=== PATIENT | female | born 1970 | race Caucasian/White ===

== ENCOUNTER 2017-01-22 11:04 | Day surgery (SDC) | payer OTHER ==
[2017-01-20 17:34] VITALS: BMI 22.5
[~2017-01-22 11:04] MED LIST: LACTATED RINGERS 1,000 ML IV SCH; LIDOCAINE 1% 20 ML VIAL (10MG/ML) FOR IV START INTRADERMA PRN
[2017-01-22 11:45] VITALS: RESP 18; TEMP 97.4
[2017-01-22] MEDS ORDERED: fentaNYL (PF) 50 MCG/ML 2 ML AMP ONE (12:34)
[2017-01-22] MEDS ORDERED: PROPOFOL 10 MG/ML 20 ML VIAL IV ONE (12:34)
[2017-01-22] MEDS ORDERED: MIDAZOLAM 2 MG/2 ML VIAL ONE (12:34)
[2017-01-22] MEDS ORDERED: LIDOCAINE 1% INJ 10MG/ML (20 ML MDV) ONE (12:34)
--- NOTE | 2017-01-22 13:12 | P.PCN ---
Date of Procedure: 01/22/17 Procedure(s) Performed: Procedure: Esophagogastroduodenoscopy and biopsy. Preoperative diagnosis: Epigastric pain. Postoperative diagnosis: 1. No obvious hiatal hernia, esophagitis or complicated reflux disease. 2. Mild antral gastritis and minimal duodenitis. 3. Multiple biopsies obtained from the duodenum, antrum and esophagus. Preparation and sedation: Was provided by anesthesia. Brief clinical history: The patient is a 46-year-old female who is scheduled for this evaluation because of epigastric pain that she has been experiencing for the last month or so. She denies dysphagia, odynophagia or unintentional weight loss. This evaluation is to assess for esophagitis or complicated reflux disease or other pathology. Procedure: With the patient on her left lateral decubitus position and after informed consent and adequate sedation, I passed the Olympus-GIF 160 video upper endoscope through the cricopharyngeus down the esophagus. GE junction was around 40 cm from the incisors and there was no hiatal hernia. The endoscope was then passed into the stomach which was insufflated with air and inspected in detail including the retroflex view in the cardia. Finally, the endoscope was passed through the pylorus into the duodenum. Pyloric channel, duodenal bulb, post bulbar area and descending duodenum showed no ulcers or erosions. There was minimal erythema in the duodenum. Antrum showed some mottling and erythema but no ulcers or erosions. The esophagus did not show any erosions, ulcers, strictures or Phillip's esophagus. I obtained biopsies from the duodenum, antrum and esophagus then the endoscope was withdrawn. The patient tolerated the procedure well. Plan: The patient was reassured. Will await pathology results. She will follow -up in the office we will keep you updated on her progress.
[2017-01-22 13:47] VITALS: BP 99/64; PULSE 66
== END 2017-01-22 14:12 | disposition home health service (06) ==
LOC: ORWHC2ENDO 11:04
DX: K29.50 Unspecified chronic gastritis without bleeding (principal); K20.9 Esophagitis, unspecified; K29.80 Duodenitis without bleeding; F41.9 Anxiety disorder, unspecified; F32.9 Major depressive disorder, single episode, unspecified; Z88.0 Allergy status to penicillin; Z79.1 Long term (current) use of non-steroidal anti-inflammatories (NSAID); Z79.899 Other long term (current) drug therapy
CPT/HCPCS: 43239; 81025; 88305; 88342; J2250; J2001; J3010; J2704

== ENCOUNTER → 2019-04-11 | Outpatient (CLI) | payer OTHER ==
--- NOTE | 2019-04-12 04:55 | MR ---
EXAMINATION TYPE: MR cervical spine wo con DATE OF EXAM: 04/11/2019 COMPARISON: 04/10/2015 HISTORY: 48-year-old female cervicalgia TECHNIQUE: Multiplanar, multisequence images of the cervical spine were acquired. FINDINGS: No craniocervical junction abnormality, predental space widening, or prevertebral soft tissue swellin g. Preserved alignment of the cervical spine though with straightening of the normal cervical lordosis. No suspicious bone marrow replacement. Mild degenerative disc disease with variable intervertebral disc desiccation especially mid to lower cervical spine. Small posterior disc bulges are present mid to lower cervical spine. Underlying mild congenital spinal canal narrowing mid cervical spine with AP canal dimension of 1.0 c m. Mild facet arthropathy mid to lower cervical spine. At C2-C3, no canal or foraminal stenosis. At C3-C4, mild facet arthropathy without canal or foraminal stenosis. At C4-C5, mild congenital canal narrowing without significant foraminal stenosis. At C5-C6, mild posterior disc bulge with mild facet arthropathy. No neural foraminal stenosis. Accent uated mild overall spinal canal stenosis with abutment and slight flattening of the ventral cord. No discrete myelopathic cord signal change. At C6-C7, mild posterior disc bulge with mild facet arthropathy. Additional mild left-sided uncoverte bral joint arthropathy causing mild left neuroforaminal stenosis. Accentuated mild spinal canal steno sis. At C7-T1, facet arthropathy and right-sided uncovertebral joint arthropathy causing mild right neurof oraminal stenosis. No spinal canal stenosis. Normal course and signal intensity of the cervical spinal cord. IMPRESSION: 1. Underlying mild congenital spinal canal stenosis especially along the mid cervical spine. 2. Superimposed mild degenerative disc disease. Posterior disc bulges at C5-C6 and C6-C7 contribute t o mild overall spinal canal stenosis, greatest at C5-C6 where there is abutment and slight flattening of the ventral cord. 3. No high-grade canal compromise. 4. Additional scattered facet arthropathy and uncovertebral joint spurring. Changes result in mild le ft neuroforaminal stenosis at C6-C7 and mild right neuroforaminal stenosis at C7-T1.
== END | disposition home or self-care (01) ==
LOC: RADMRIMAIN 07:16
PROVIDERS: ATTEND Orthopaedic Surgery
DX: M48.02 Spinal stenosis, cervical region (principal); M50.122 Cervical disc disorder at C5-C6 level with radiculopathy; M50.10 Cervical disc disorder with radiculopathy, unspecified cervical region; M46.92 Unspecified inflammatory spondylopathy, cervical region
CPT/HCPCS: 72141

== ENCOUNTER → 2019-08-25 | Outpatient (CLI) | payer OTHER ==
--- NOTE | 2019-08-25 15:49 | US ---
EXAMINATION TYPE: US venous doppler duplex LE BI DATE OF EXAM: 08/25/2019 2:54 PM COMPARISON: NONE CLINICAL HISTORY: M79.662, R22.42, M79.661, R22.41. Bilateral leg pain, patient taking aspirin SIDE PERFORMED: Bilateral TECHNIQUE: The lower extremity deep venous system is examined utilizing real time linear array sonog miranda with graded compression, doppler sonography and color-flow sonography. VESSELS IMAGED: External Iliac Vein (EIV) Common Femoral Vein Deep Femoral Vein Greater Saphenous Vein * Femoral Vein Popliteal Vein Small Saphenous Vein * Proximal Calf Veins (* superficial vessels) Right Leg: Appears negative for DVT Left Leg: Appears negative for DVT IMPRESSION: 1. Bilateral lower extremity ultrasound negative for deep venous thrombosis
== END | disposition home or self-care (01) ==
LOC: RADUSWWP 14:12
PROVIDERS: ATTEND Internal Medicine
DX: M79.661 Pain in right lower leg (principal); R22.41 Localized swelling, mass and lump, right lower limb; M79.662 Pain in left lower leg; R22.42 Localized swelling, mass and lump, left lower limb; Z88.0 Allergy status to penicillin
CPT/HCPCS: 93970

== ENCOUNTER → 2019-11-29 | Day surgery (SDC) | payer OTHER ==
[2019-11-28 09:08] VITALS: BMI 21.1
[~2019-11-29] MED LIST changes: +DEXAMETHASONE SOD PHOSPHATE 10 MG/ML 1 ML VIAL ONE; +IOPAMIDOL M200 10 ML VIAL ONE; +IV FLUID CONTINUATION 1,000 ML IV ONE; -LIDOCAINE 1% 20 ML VIAL (10MG/ML) FOR IV START INTRADERMA PRN; +MIDAZOLAM 2 MG/2 ML VIAL ONE; +SODIUM CHLORIDE 0.9% (PF) 10 ML VIAL ONE; +fentaNYL (PF) 50 MCG/ML 2 ML AMP ONE
[2019-11-29 13:04] VITALS: RESP 16; TEMP 98.1
--- NOTE | 2019-11-29 13:28 | P.CONS ---
History of Present Illness - Reason for Consult Consult date: 11/29/19 - Chief Complaint Neck pain - History of Present Illness This is a 49-year-old lady with history of neck pain which started in April 2019 with no precipitating events. 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 The patient denies any paresthesia in the upper extremities. She feels some weakness in the right arm. Her pain is worse on the right side than the left side. She denies any bowel or bladder dysfunction. The pain occasionally wakes her up at night. There are no alleviating or exacerbating factors noticed by the patient. She had cervical MRI which showed disc bulging at the C5 6 level with mild cervical stenosis and abutment of the thecal sac. Review of Systems Constitutional: Denies chills, Denies fever Cardiovascular: Denies chest pain, Denies shortness of breath Respiratory: Denies cough Musculoskeletal: Reports as per HPI Neurological: Reports as per HPI Past Medical History Past Medical History: No Reported History Additional Past Medical History / Comment(s): LYMPHADEMA BOTH LEGS , HEADACHES , NECK PAIN , SEASONAL ALLERGIES, History of Any Multi-Drug Resistant Organisms: None Reported Past Surgical History: Appendectomy, Orthopedic Surgery, Tonsillectomy Additional Past Surgical History / Comment(s): paula.carpal tunnel, RIGHT KNEE ARTHROSCOPIC Past Anesthesia/Blood Transfusion Reactions: Motion Sickness, Postoperative Nausea & Vomiting (PONV) Smoking Status: Never smoker - Past Family History Mother Family Medical History: Cancer Additional Family Medical History / Comment(s): colon & Breast CA Sister(s) Family Medical History: Cancer Additional Family Medical History / Comment(s): Osteosarcoma Medications and Allergies Home Medications Medication Instructions Recorded Confirmed Type Ibuprofen [Motrin] 600 - 800 mg PO Q6HR PRN 12/19/15 11/28/19 History Vilazodone HCl [Viibryd] 40 mg PO DAILY 12/19/15 11/28/19 History Calcium Carbonate/Vitamin D3 1 each PO DAILY 11/28/19 11/28/19 History [Calcium 500-Vit D3 200 Tablet] Furosemide [Lasix] 20 mg PO DAILY 11/28/19 11/28/19 History Montelukast [Singulair] 10 mg PO DAILY 11/28/19 11/28/19 History Multivitamin [Multivitamins Adult 1 each PO DAILY 11/28/19 11/28/19 History Gummies] Omeprazole 20 mg PO DAILY 11/28/19 11/28/19 History Allergies Allergy/AdvReac Type Severity Reaction Status Date / Time Penicillins Allergy Anaphylaxis Verified 11/29/19 13:08 Physical Exam Vitals: Vital Signs Temp Pulse Resp BP Pulse Ox 11/29/19 13:03 98.1 F 88 16 146/90 100 Intake and Output 11/28/19 11/29/19 11/29/19 22:59 06:59 14:59 Other: Weight 61.1 kg - Constitutional General appearance: average body habitus - EENT Eyes: PERRLA - Respiratory Respiratory: bilateral: CTA - Cardiovascular Rhythm: regular - Neurologic Neuro exam of the upper extremities showed normal and symmetrical muscle strength bilaterally and symmetrically. Postoperative tenderness in the cervical paravertebral musculature and the trapezius muscles bilaterally. Normal range of motion of the cervical spine Neurologic: CNII-XII intact - Psychiatric Psychiatric: A&O x's 3, appropriate affect, intact judgment & insight Assessment and Plan Plan: This is a 49-year-old lady with what seems to be cervical stenosis due to disc bulging at the C5 6 level. The patient may benefit from getting an interlaminar cervical epidural steroid injection at the C7-T1 level in the right paramedian approach. The procedure was explained to the patient and her questions were answered. I thank you for the referral
--- NOTE | 2019-11-29 13:45 | P.PCN ---
Date of Procedure: 11/29/19 Surgeon: Maged Peterson Pathology: none sent Condition: stable Disposition: PACU Description of Procedure: PROCEDURE 1. Cervical epidural steroid injection under fluoroscopic guidance, C7-T1 Rt paramedian approach. 2. Cervical epidurogram. : PREOPERATIVE DIAGNOSIS: Cervical stenosis POSTOPERATIVE DIAGNOSIS: : Same as above ANESTHESIA: Local anesthesia with 1% lidocaine and IV moderate conscious sedation with Versed and Fentanyl . EBL 0 PROCEDURE INDICATION: The patient with neck pain and radiculopathy unresponsive to conservative treatment consents for procedure. PROCEDURE DESCRIPTION / TECHNIQUE: The patient was seen and identified in the preoperative area. Risks, benefits, complications, including but not limited to infections ,bleeding , allergic reactions to the medications ,and not complete pain relief, and alternatives were discussed with the patient, the patient agreed to proceed with the procedure and signed the consent. Patient was taken to the OR and time out was completed. The patient was placed in the prone position on the procedure table. A pillow was placed under the patients chest to increase the flexion of the cervical spine . The cervical area was prepped and draped in the usual sterile fashion. Vital signs were closely monitored during the procedure. Conscious sedation was used during the procedure to decrease patients anxiety. Using anterior-posterior fluoroscopy, the C7-T1 interlaminar space was identified and the skin over this site was marked and then infiltrated with 1% lidocaine subcutaneously. Subsequently, a 20-gauge 3-1/2-inch Tuohy epidural needle was inserted and advanced toward the epidural space by means of loss of resistance to air technique and guided by AP and lateral fluoroscopy. The needle tip contacted the lamina of T1 vertebra first, then it was walked off bone and into the epidural space using the loss of to air and fluoroscopic guidance to identify the epidural space. The correct needle position in the e pidural space was verified with the injection of 1 mL of the water soluble contrast dye Isovue and observing an excellent epidurogram with the epidural spread of the dye, after negative aspiration for blood and CSF and in the absence of paresthesias. Again after negative aspiration, a 2 ml mixture containing 10 mg of Decadron and 1 ml of preservative free Normal Saline solution was injected and a washout of epidurogram was seen. Needle was withdrawn intact, skin was cleansed, and bandages were applied. A copy of the needle placement picture was saved to the fluoroscopy machine.
[2019-11-29 14:09] VITALS: BP 132/86; PULSE 77
--- NOTE | 2019-11-29 15:02 | FL ---
Fluoroscopy HISTORY: Pain 7 seconds fluoroscopy time supplied to the referring clinician. 1 intraoperative C-arm images docume nt the procedure. See dictated report from anesthesia.
== END ==
LOC: ORPAIN 12:10
PROVIDERS: ATTEND Anesthesiology
DX: M48.02 Spinal stenosis, cervical region (principal); M47.22 Other spondylosis with radiculopathy, cervical region; M50.122 Cervical disc disorder at C5-C6 level with radiculopathy; I89.0 Lymphedema, not elsewhere classified; K21.9 Gastro-esophageal reflux disease without esophagitis; J30.2 Other seasonal allergic rhinitis; Z88.0 Allergy status to penicillin; Z79.899 Other long term (current) drug therapy; Z90.49 Acquired absence of other specified parts of digestive tract; Z98.890 Other specified postprocedural states; Z90.89 Acquired absence of other organs; Z86.69 Personal history of other diseases of the nervous system and sense organs; Z87.898 Personal history of other specified conditions; Z91.89 Other specified personal risk factors, not elsewhere classified; Z79.1 Long term (current) use of non-steroidal anti-inflammatories (NSAID); Z80.3 Family history of malignant neoplasm of breast; Z80.0 Family history of malignant neoplasm of digestive organs; Z80.8 Family history of malignant neoplasm of other organs or systems
CPT/HCPCS: 81025; 62321; J2250; J1100; J3010; Q9966; 99152

== ENCOUNTER → 2019-11-30 | Outpatient (CLI) | payer OTHER ==
--- NOTE | 2019-11-30 14:06 | CT ---
EXAMINATION TYPE: CT cervical spine wo con DATE OF EXAM: 11/30/2019 COMPARISON: Cervical spine x-ray November 09, 2019. MRI cervical spine April 10, 2015 HISTORY: Neck p ain CT DLP: 279.40 mGycm. Automated Exposure Control for Dose Reduction was Utilized. TECHNIQUE: CT scan of the cervical spine is obtained without contrast, axial images are obtained, sa gittal and coronal reformatted images are also reviewed. FINDINGS: Cervical spine is visualized in its entirety from C1 through upper thoracic levels, we demo nstrates slight grade 1 retrolisthesis C5 on C6 without evidence of acute fracture or dislocation. St raightened alignment redemonstrated. Prevertebral soft tissue appears within normal limits. The C1-C 2 articulation is within normal limits on the coronal images. Vertebral body heights and disc space h eights are maintained. No new large disc herniation on sagittal images. Spinal canal is preserved. Review of axial images shows C2-C3 through C4-C5 level to appear within normal limits. Axial images at C5-C6 level show tiny central disc protrusion on image 50 mildly effaces the anterior thecal sac, bilateral neural foramina are patent. No significant change from prior MRI. Axial images at C6-C7 level shows a left paracentral disc protrusion mildly effaces the anterior thec al sac on image 58. Bilateral neural foramina are patent. No significant change from prior MRI. Axial images at C7-T1 level remain within normal limits. Thyroid gland is felt within normal limits. Visualized lung apices are clear. IMPRESSION: Straightening of cervical spine with mild degenerative changes C5-C6 and C6-C7 level rede monstrated. No significant change or interval progression from prior MRI.
== END | disposition home or self-care (01) ==
LOC: RADCTMAIN 13:36
PROVIDERS: ATTEND Orthopaedic Surgery
DX: M47.892 Other spondylosis, cervical region (principal); Z88.0 Allergy status to penicillin
CPT/HCPCS: 72125

== ENCOUNTER → 2020-01-18 | Outpatient (CLI) | payer OTHER ==
--- NOTE | 2020-01-18 08:31 | P.PN ---
Subjective Progress Note Date: 01/18/20 This is a 49-year-old lady with history of neck pain with radiation to the right shoulder and occasional radiation to the right hand medially with occasional numbness and tingling in the right hand. The patient had carpal tunnel release surgery on her right hand which did not resolve her symptoms. She recently had an EMG at a different physician office and we'll try to get a copy of the report. She did receive one cervical epidural steroid injection at C7-T1 level in the interlaminar approach however she did not feel improvement in her pain. 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 Patient denies new-onset weakness, bowel/bladder incontinence, or any other signs or symptoms of cauda equina syndrome. There are no signs of acute intoxication, and no indications of medication diversion or overuse. In addition to above, 13-point review of systems is also negative for chest pain, shortness of breath, changes in vision, changes in hearing, new onset weakness, abdominal pain, diarrhea, extreme fatigue, malaise, fever, skin changes, homicidal or suicidal ideation, or bowel or bladder incontinence. Vital Signs: Reviewed in EMR Gen: AAOx3, NAD HEENT: PERRLA,hearing grossly normal Pulm: resp unlabored Neck: supple, trachea midline Neuro exam of the lower extremities: Normal muscle strength in the upper extremities bilaterally and symmetrically Straight leg raising test: Yefri's test: Range of motion of the lumbar spine: Normal range of motion of the cervical spine Facet loading test: Tenderness in the paravertebral musculature: Positive tenderness in the right cervical paravertebral musculature and in the right trapezius muscle Neuro: CN II-XII grossly intact, Imaging: The EMG results pending Assessment: Right cervical radiculopathy Myofascial pain Plan: 1. Explanation: Opioid and psychological risk scores were reviewed. Diagnoses, prognoses, and multiple treatment options including but not limited to physical therapy, interventional therapies, adjuvant medical therapies, narcotic medication therapies, and surgery were discussed with the patient and all questions were answered to the patient's satisfaction. 2. Opioid agreement: Signed with the patient and the patient is warned not to use opioids while driving or before driving and not to combine opioids with benzodiazepines or alcohol. 3. Counseling: The patient was counseled extensively on SMOKING CESSATION, BODY MASS INDEX, EXERCISE. Specifically, the patient was instructed regarding the importance of smoking cessation, obesity, and exercise in the context of both chronic pain and overall health. 4. Procedures: Scheduled for only 1 more cervical epidural steroid injection with trigger point injection in the right paravertebral musculature and right trapezius muscle 5. Consultations: Obtained the results of her most recent EMG 6. Investigations: None 7. Medications: None 8. Disposition: Return to the above-mentioned procedure as soon as possible and in 4 weeks for a follow-up visit 9. Maps were reviewed and were appropriate.
[2020-01-18 08:40] VITALS: BP 120/81; PULSE 91; RESP 16; TEMP 97.7
== END | disposition home or self-care (01) ==
LOC: PNWHC3 08:03
PROVIDERS: ATTEND Anesthesiology
DX: M54.12 Radiculopathy, cervical region (principal); M79.18 Myalgia, other site
CPT/HCPCS: 99211

== ENCOUNTER 2020-02-14 11:23 | Day surgery (SDC) | payer OTHER ==
[2020-02-08 16:00] VITALS: BMI 21.1
[2020-02-14 11:55] VITALS: TEMP 97.8
[2020-02-14] MEDS ORDERED: LACTATED RINGERS 1,000 ML IV ONE (11:57)
[2020-02-14] MEDS ORDERED: LIDOCAINE 1% (10MG/ML) FOR IV START INTRADERMA ONE (11:58)
[2020-02-14] MEDS ORDERED: DEXAMETHASONE SOD PHOSPHATE 10 MG/ML 1 ML VIAL ONE (12:18)
[2020-02-14] MEDS ORDERED: IOPAMIDOL M200 10 ML VIAL ONE (12:18)
[2020-02-14] MEDS ORDERED: ROPIVACAINE 5MG/ML 20ML VIAL ONE (12:18)
[2020-02-14] MEDS ORDERED: fentaNYL (PF) 50 MCG/ML 2 ML AMP ONE (12:18)
[2020-02-14] MEDS ORDERED: MIDAZOLAM 2 MG/2 ML VIAL ONE (12:18)
[2020-02-14] MEDS ORDERED: IV FLUID CONTINUATION 1,000 ML IV ONE (12:44)
[2020-02-14 12:50] VITALS: RESP 16
[2020-02-14 12:59] VITALS: BP 130/80; PULSE 84
--- NOTE | 2020-02-14 13:18 | FL ---
Fluoroscopy HISTORY: Pain 10 seconds fluoroscopy time supplied to the referring clinician. 2 intraoperative C-arm images docum ent the procedure. See dictated report from anesthesia.
--- NOTE | 2020-02-15 11:16 | P.PCN ---
Date of Procedure: 02/14/20 Description of Procedure: Diagnosis: Cervical radiculopathy Cervical degenerative disc disease Myofascial pain POSTOPERATIVE DIAGNOSIS: Diagnoses: Cervical radiculopathy Cervical degenerative disc disease Myofascial pain PROCEDURE Cervical Epidural steroid injection under fluoroscopic guidance at the C7-T1 interspace using right paramedian approach Cervical epidurogram R cervical paraspinal, levator scapulae, rhomboid trigger point injections ANESTHESIA: Local with 1% lidocaine 3 ml and IV sedation with Versed and fentanyl, sedation time 16 min Fluoroscopy was used for the procedure and images were saved in the radiology portion of the chart. EBL: Minimal PROCEDURE INDICATION: The patient presents with cervical radicular symptoms unresponsive to conservative treatment. This is the second cervical epidural steroid injection. PROCEDURE DESCRIPTION / TECHNIQUE: The patient was seen and identified in the preoperative area. Risks, benefits, complications including but not limited to infections ,bleeding ,allergic reaction to the medications ,nerve damage and incomplete pain relief, and alternatives were discussed with the patient. The patient agreed to proceed with the procedure and signed the consent. IV was started, and vital signs were stable. Patient was taken to the OR and time out was completed. The patient was placed in the prone position on procedure table and a pillow was placed under the chest area. The cervical area was prepped and draped in the usual sterile fashion. Conscious sedation was used during the procedure to decrease patients anxiety. Vital signs was monitored during the entire procedure. Using anterior-posterior fluoroscopy, the C7-T1 interlaminar space was identified and the skin over this site was marked and then infiltrated with 1% lidocaine subcutaneously. Subsequently, a 20-gauge Tuohy epidural needle was inserted and advanced toward the epidural space using the loss of resistance technique and guided by AP and 50 oblique fluoroscopy. The correct needle position in the epidural space was verified. After negative aspiration for blood and CSF and in the absence of paresthesias, Isovue 200 2 mL's was injected under live fluoroscopy with good epidural spread. After negative aspiration, a 4 ml mixture containing 10 mg of dexamethasone, 3 mL of preservative free normal saline was injected. Needle was withdrawn intact, skin was cleansed, and bandages were applied. Internal attention to the right cervical paraspinal, levator scapulae, rhomboid muscles. I identified 4 trigger points and after cleaning with aseptic technique injected 1 mL of 0.5% ropivacaine at each trigger point after aspirating negative heme or air. Patient tolerated the procedure well COMPLICATIONS: None DISPOSITION / PLANS: The patient was placed in a supine position and transferred to the recovery area in a stable condition for observation. There was no evidence of lower extremity motor or sensory deficit after the procedure. Patient was discharged from the recovery room after meeting discharge criteria. Home discharge instructions were given to the patient by the staff. The patient will be scheduled for clinic visit in 2-4 weeks.
== END 2020-02-14 13:17 ==
LOC: ORPAIN 11:23
PROVIDERS: ATTEND Anesthesiology
DX: M50.10 Cervical disc disorder with radiculopathy, unspecified cervical region (principal); M79.18 Myalgia, other site; Z88.0 Allergy status to penicillin
CPT/HCPCS: 81025; 20553; 62321; J2250; J1100; J3010; Q9966; J2795; 99152

== ENCOUNTER → 2020-04-09 | Outpatient (CLI) | payer OTHER ==
--- NOTE | 2020-04-09 16:32 | MR ---
MRI CERVICAL SPINE: CLINICAL HISTORY: Headache with neck pain for 1 year causing pain or weakness into both arms and fing ers per patient. TECHNIQUE: Multiplanar, multisequence imaging of the cervical spine is performed without IV contrast. COMPARISON: MRI cervical spine April 11, 2019. CT cervical spine November 30, 2019 FINDINGS: Sagittal images of the cervical spine show the craniocervical junction to remain within nor mal limits. The cervical and upper thoracic spinal cord remains normal in caliber and signal. Stable grade 1 retrolisthesis C5 on C6. Stable mild generalized AP spinal canal narrowing The vertebral bod y and intravertebral disk heights remained normal. The bone marrow signal intensity remains within n ormal limits. Axial images at C2-C3, C3-C4, C4-C5 levels all remain within normal limits. Axial images at C5-C6 level redemonstrate spondylolisthesis and broad-based posterior disc protrusio n with mild facet arthropathy bilaterally. Mild effacement of the anterior thecal sac and mild bilate ral neural foraminal narrowing. No significant change from prior MRI. Axial images at C6-C7 level show broad-based posterior disc protrusion with left paracentral disc pro trusion component effacing anterior thecal sac, the left paracentral component is more prominent from prior MRI seen on axial image 13 and sagittal image 6 measuring approximately 9.4 mm transversely by 3.6 mm AP diameter on axial image 13. Effacement of the anterolateral thecal sac is present up to ve ntral surface of spinal cord which is now flattened Axial images at C6-C7 level shows a left paracentral disc protrusion mildly effaces the anterior thec al sac on image 58. Bilateral neural foramina are patent. No significant change from prior MRI. New a symmetric moderate left-sided neural foraminal narrowing. Axial images at C7-T1 level show stable right paracentral spur disc complex effacing and lateral thec al sac and causing mild right-sided neural foraminal narrowing and image 6. IMPRESSION: New disc herniation C6-C7 level noted from most recent MRI. Other degenerative findings s table as detailed above.
== END | disposition home or self-care (01) ==
LOC: RADMRIMAIN 15:47
PROVIDERS: ATTEND Orthopaedic Surgery
DX: M50.223 Other cervical disc displacement at C6-C7 level (principal)
CPT/HCPCS: 72141

== ENCOUNTER 2020-04-24 11:27 | Day surgery (SDC) | payer OTHER ==
[2020-04-24 11:55] VITALS: RESP 16; TEMP 97.8
[2020-04-24] MEDS ORDERED: LACTATED RINGERS 1,000 ML IV ONE (12:04)
[2020-04-24] MEDS ORDERED: LIDOCAINE 1% (10MG/ML) FOR IV START INTRADERMA ONE (12:05)
[2020-04-24] MEDS ORDERED: DEXAMETHASONE SOD PHOSPHATE 10 MG/ML 1 ML VIAL ONE (12:10)
[2020-04-24] MEDS ORDERED: fentaNYL (PF) 50 MCG/ML 2 ML AMP ONE (12:10)
[2020-04-24] MEDS ORDERED: MIDAZOLAM 2 MG/2 ML VIAL ONE (12:10)
[2020-04-24] MEDS ORDERED: IOPAMIDOL M200 10 ML VIAL ONE (12:10)
[2020-04-24] MEDS ORDERED: IV FLUID CONTINUATION 550 ML IV ONE (12:36)
[2020-04-24] MEDS ORDERED: KETOROLAC 15 MG/ML 1 ML VIAL ONE (12:45)
[2020-04-24] MEDS ORDERED: KETOROLAC 15 MG/ML 1 ML VIAL IVP ONE (12:48)
[2020-04-24 12:58] VITALS: BP 145/97; PULSE 97
--- NOTE | 2020-04-24 13:24 | FL ---
EXAMINATION TYPE: FL guidance operating room DATE OF EXAM: 04/24/2020 HISTORY: Fluoroscopy time 12 seconds of fluoroscopy provided. IMPRESSION: 1. Fluoroscopy time.
--- NOTE | 2020-04-24 14:14 | P.PCN ---
Date of Procedure: 04/24/20 Procedure(s) Performed: PREOPERATIVE DIAGNOSIS:1- Cervical radiculopathy . 2-cervical degenerative disc disease POSTOPERATIVE DIAGNOSIS: Same as preoperative diagnoses. PROCEDURE 1. Transforaminal epidural steroid injection under fluoroscopic guidance at Left C6-7 level. (Fluoroscopy images stored on file in the radiology Department ) ANESTHESIA: Local with 1% lidocaine 3 ml , moderate sedation with intravenous Versed 2 mg and fentanyle 100 micrograms. EBL: Minimal PROCEDURE INDICATION: The patient with neck pain and radiculopathy symptoms unresponsive to conservative treatment. PROCEDURE DESCRIPTION / TECHNIQUE: The patient was seen and identified in the preoperative area. Risks, benefits, complications, and alternatives were discussed with the patient. The patient agreed to proceed with the procedure and signed the consent. IV was started, and vital signs were stable. Patient was taken to the OR and time out was completed. The patient was placed in the prone position on procedure table and a pillow was placed under the abdomen to reduce lumbar lordosis. The cervical area was prepped and draped in the usual sterile fashion. Critical pause was taken. Vital signs were closely monitored during the procedure. Conscious sedation was used during the procedure to decrease patient s anxiety. Using fluoroscopy, the C6-7 level was identified, and the skin and deeper tissues just below was localized with 1% lidocaine. Subsequently, a 22-gauge 3.5-inch spinal needle was advanced under a tunneled view fluoroscopic guidance just underneath the chin of the `Jalen dog at the left C6-7 Under lateral fluoroscopy, the needle was then advanced to the posterior border of the interforaminal space. After negative aspiration of CSF and blood and with no paresthesias, 1,5 mL Isovue 200 contrast dye was injected ,it showed the spread in the epidural space , then after negative aspirations for hem or CSF ,3 mL of block solution containing 20 mg Dexamethasone PF ,and 1 mL of 0.9% normal saline PF was injected. then the Needle was removed . At the end of the procedure, skin was cleansed, and bandages were applied. COMPLICATIONS:none DISPOSITION / PLANS: The patient was placed in a supine position and transferred to the recovery area in a stable condition for observation. There was no evidence of upper extremity motor or sensory deficit after the procedure. Patient was discharged from the recovery room after meeting discharge criteria. Home discharge instructions were given to the patient by the staff.
== END 2020-04-24 13:08 | disposition home or self-care (01) ==
LOC: ORPAIN 11:27
PROVIDERS: ATTEND Specialist
DX: M50.10 Cervical disc disorder with radiculopathy, unspecified cervical region (principal); Z88.0 Allergy status to penicillin
CPT/HCPCS: 81025; 64483; J1885; J2250; J1100; J3010; Q9966; 99152

== ENCOUNTER → 2020-05-15 | Outpatient (CLI) | payer OTHER | END | disposition home or self-care (01) | LOC: LABPAT 11:07 | PROVIDERS: ATTEND Orthopaedic Surgery | DX: Z01.812 Encounter for preprocedural laboratory examination (principal) | CPT/HCPCS: 86850; 86900; 86901; 87070 ==

== ENCOUNTER 2020-05-22 09:05 | Observation (INO) | payer OTHER ==
[2020-05-16 11:52] VITALS: BMI 21.1
--- NOTE | 2020-05-21 13:14 | P.HPOR ---
History of Present Illness H&P Date: 05/17/20 Chief Complaint: Arm pain, weakness LUE, neck pain, HNP This 48 year old female presents with 6 months of neck pain. She notes right sided pain and numbness that radiates into her shoulder and down into her hand. Patient also has history of left sided pain and numbness. She has limited range of motion. Patient had previous bilateral carpal tunnel release surgery. Patient takes Motrin and Aleve as needed. She takes Prednisone 10mg daily and has been taking of the last 3 weeks which seems to help her but is not taking well her symptoms. She states when she is off of the prednisone her symptoms return. She states that physical therapy was done on her most recent visit was about 3 weeks ago and it did help although minimally. She currently states some numbness and tingling down her arm into her hand but does not state any weakness. She states she does have some trouble with buttoning her shirt but no other find motor skill deficits. She denies any fevers chills shortness breath or chest pain at this time. She denies any bowel or bladder control issues. She denies any imbalance issues. Despite an array of conservative measures, all have failed including extensive PT, home exercises, medications OTC and Rx as well as injections. She has not improved with any of these and is ready for surgical intervention. Past Medical History Past Medical History: GERD/Reflux, Musculoskeletal Disorder Additional Past Medical History / Comment(s): migraine headaches, herniated discs, neck & left shoulder pain mainly, left knee swelling from ruptured null's cyst History of Any Multi-Drug Resistant Organisms: None Reported Past Surgical History: Appendectomy, Orthopedic Surgery, Tonsillectomy Additional Past Surgical History / Comment(s): paula.carpal tunnel, arthroscopy right knee x2 Past Anesthesia/Blood Transfusion Reactions: Motion Sickness, Postoperative Nausea & Vomiting (PONV) Additional Past Anesthesia/Blood Transfusion Reaction / Comment(s): PONV only w/appy. Smoking Status: Never smoker - Past Family History Mother Family Medical History: Cancer Additional Family Medical History / Comment(s): colon & Breast CA Sister(s) Family Medical History: Cancer Additional Family Medical History / Comment(s): Osteosarcoma Medications and Allergies Home Medications Medication Instructions Recorded Confirmed Type Ibuprofen [Motrin] 600 - 800 mg PO Q6HR PRN 12/19/15 05/16/20 History Vilazodone HCl [Viibryd] 40 mg PO DAILY 12/19/15 05/16/20 History Calcium Carbonate/Vitamin D3 1 each PO DAILY 11/28/19 05/16/20 History [Calcium 500-Vit D3 200 Tablet] Furosemide [Lasix] 20 mg PO DAILY 11/28/19 05/16/20 History Multivitamin [Multivitamins Adult 1 each PO DAILY 11/28/19 05/16/20 History Gummies] Omeprazole 20 mg PO DAILY 11/28/19 05/16/20 History HYDROcodone/APAP 10-325MG [[place] 0.5 tab PO BID PRN 05/16/20 05/16/20 History 10-325] Potassium Chloride ER [K-Dur 10] 20 meq PO DAILY 05/16/20 05/16/20 History Topiramate [Topamax] 25 mg PO DAILY 05/16/20 05/16/20 History tiZANidine [Zanaflex] 4 mg PO Q6HR PRN 05/16/20 05/16/20 History Allergies Allergy/AdvReac Type Severity Reaction Status Date / Time Penicillins Allergy Anaphylaxis Verified 05/16/20 11:48 Physical Examination Osteopathic Statement: *. No significant issues noted on an osteopathic structural exam other than those noted in the History and Physical/Consult. Results XRAY: AP lateral flexion and extension views are obtained of the patient's cervical spine in the office today.a straightening of the normal lumbar lordosis with only 10 of lordosis and a somewhat focal kyphotic deformity at the C4 5 region. There is mild spondylosis at the C5 6 region. flexion and extension views demonstrate mild anterior listhesis of C4 on C5 without overt instability. Overall alignment is well maintained through motion. 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 this demonstrates an overall well-maintained alignment spondylosis at C5 6 and 45. At C5 6 there is a broad-based disc bulge which is causing mild thecal sac encroachment. There is also causing right foraminal stenosis which is mild to moderate. The below report was reviewed. MRI cervical spine without contrast. HISTORY: neck pain Multiplanar MultiSpin echo imaging of the cervical spine was performed. Comparison: none C2-C3: No evidence for degenerative disc disease. No disc bulge/herniation or protrusion. No Canal stenosis. Foramina are patent bilaterally. C3-C4: No evidence for degenerative disc disease. No disc bulge/herniation or protrusion. No Canal stenosis. Foramina are patent bilaterally. C4-C5: Mild decreased signal and loss of height compatible with degenerative disc disease. Mild posterocentral disc bulge mildly effaces the ventral thecal sac. No evidence for herniation protrusion or central stenosis. No foraminal encroachment identified. C5-C6: Mild decreased signal and loss of height compatible with degenerative disc disease. Mild posterocentral disc bulge mildly effaces the ventral thecal sac. No evidence for herniation protrusion or central stenosis. No foraminal encroachment identified. C6-C7: Mild decreased signal and loss of height compatible with degenerative disc disease. Mild posterocentral disc bulge mildly effaces the ventral thecal sac. There is mild left foraminal encroachment. C7- T1: No evidence for degenerative disc disease. No disc bulge/herniation or protrusion. No Canal stenosis. Foramina are patent bilaterally. Cervical segments are intact. There is normal alignment. Cervical spinal cord is of normal signal. Craniovertebral junction relationships are within normal limits. IMPRESSION: 1. Degenerative disc disease with mild disc bulging as discussed above.Dictated By: Yash Beverly MD 04/10/15 1351 Signed By: <Electronically signed by Yash Beverly MD in OV> 04/10/15 1359 04/10/15 1351 Signed By: Yash Beverly CT of the cervical spine reveals: spondylosis C4 5 5 6 and 67 with the worst at 56. This is isolated to the disc space and facets are preserved. This correlates with a needed disc at this level. Fractures or dislocations noted overall alignment maintained. Bilateral EMG from 01/11/2020 reveals: bilateral carpal tunnel syndrome right worse than left but does not r/o radiculopathy at this time. Updated MRI C-spine MRI of the cervical spine shows an acute on chronic disc herniation of C6-C7 which is more prominent on the left-hand side causing moderate stenosis in this area. There is no myelomalacia noted there is no fracture dislocation or lesio ns noted however this disc herniation is fairly significant and likely cause of her pain as it correlates with where her symptoms are. Overall alignment is fairly well maintained. There is no acute kyphosis. Assessment and Plan Assessment: 1. C5-C6, C6-7 disc herniation failed all conservative measures including medications antiiflammatory, pain NSAID and steroid, PT, WALKER and home exercises with continued symptoms regarless of these modalities. 2. left upper extremity radiculopathy and weakness Plan: Based on my findings I suggest the following course of action: 1.C5-C6, C6-C7 disc replacement 2. Pre-op clearance by her PCP Spine Surgery Risk Review Christina Barnes is a 49 yo female presenting for evaluation of Neck pain, RUE pain and weakness. It was my pleasure to have seen and examined Christina Barnes In our visit today we have had a chance to go over subjective complaints, physical examination findings and treatments including the natural course history without intervention and various interventional options. The patients imaging demonstrates a/c C5-6 and C6-7 disc herniations with stenosis. On physical exam,Christina Barnes demonstrates severe RUE pain, braille typist weakness, dermatomal deficit C6. I have explained to the patient that as their condition progresses it will cause further neurological deficits and eventual paralysis. Based on the patients imaging, physical exam, and the rapid progression and disabling nature of their symptoms, at this time I recommend surgery in the form or a: cervical disc replacement. I discussed the risk and benefits of this procedure at length with Christina Barnes. The patient agreed to considered pursuing the procedure abovementioned. Prior to surgery, she should follow up with her PCP (Cardio, ID, IM etc) for clearance. Questions were invited and answered, and the patient wishes to proceed as outlined below. Currently, I am recommendin.Anterior (frontside) cervical disc replacement at C5-6 and C6-7 2.Follow up with PCP for surgical clearance 3.Review of surgical risks and benefits as well as an educational packet on the proposed surgical procedure. Risks: All surgical procedures come with inherent risks, including those related to positioning, anesthesia, intraoperative findings, and postoperative complications. It is important to understand that surgery does not come with any guarantee of a successful outcome as complications and adverse events are always possible. The patient was given a handout in office today discussing the surgical procedure and risks associated with the intervention, both of which were discussed with the patient. These risks include but are not limited to the following: * Experiencing same, different or even worse symptoms in back, neck, arms, or legs compared to before surgery. Requiring further surgery or other forms of treatment presently or at some time in the future at same or other levels of the intended spine surgery. On an extreme but fortunately relatively rare basis severe complication such as blindness, stroke, heart attack, temporary and/or permanent nerve injury, paralysis, coma, or may occur, sometimes without known explanation. Surgical complications may include but are not limited to risk of infection, fluid accumulation in the surgical dissection site, including a seroma or hematoma, that requires additional surgery, wound drainage, bleeding, new numbness or weakness, vision changes/loss, spinal fluid leakage, non-healing and/or infected incision, headaches, difficulty or inability to swallow, hoarseness, hemopneumothorax, pneumothorax, impotence, retrograde ejaculation, vaginal dryness; injury to nerves, spinal cord, blood vessels, lymphatics or other vital organs (i.e., bowel injury, injury to the great vessels); heterotopic bone formation; complications related to the hardware such as screws, rods, cages including misplaced hardware, device failure, instrumentation at the wrong spine level, hardware fracture/breakage, or hardware loosening; vertebral failure of the spinal column above or below the newly placed hardware; retained surgical instrumentations or devices and the need for further surgery. * Medical risks of the planned spine surgery include but are not limited to generalized Infections to the whole body or local areas outside of the surgical site (sepsis), heart attack, bleeding, anaphylaxis, meningitis, seizure, epilepsy, hearing loss, burn bean, laceration of the head or other areas of the body, bruising, hypersensitivity of the skin, bladder over distension; allergic reaction; shoulder injury related to positioning; fat, blood and air clots to other areas of the body like heart, lungs, brain; failure of internal organs such as lungs, kidneys, liver and excessive bleeding. If blood transfusions are necessary, note that transfusions may cause intolerance reactions such as anaphylaxis or other complex reactions. Despite best efforts, the results of spine surgery might not heal in terms of bone, soft tissues such as skin, fascia, ligaments, and joints. Additionally, in order to achieve best possible results, spine surgery may be carried out beyond the initially planned levels and involve decompression, fusion including insertion of hardware at levels other than the original intended area of surgical interest change some portions of the procedure in order to ensure the best possible outcomes. With spine surgery and spinal fusion, there are different off label uses of instrumentation (devices, implants and hardware) as well as biological substances (bone morphogenic proteins, demineralized bone matrix) as well as using extra bone from allograft sources (i.e. cadaver bone) or autograft (iliac crest bone, ribs, or the spine itself). The patient has been given information about these practices and their inherent risks and benefits. [facility] is an educational center that serves as a training facility for neurosurgical and orthopedic spine residents and fellows. Residents are physicians who are completing their surgical intensive training following medical school. They assist in the operating room with direct supervision of the attending surgeons. [place] are surgeons who have completed their training and eligible for board certification. They have opted for an elective year of more specialized training in their field. They assist in the operating room under the supervision of the attending surgeons. Physician assistants are medically trained surgical providers who function in the outpatient, inpatient, and operating room setting under the direct supervision of the attending surgeon. [facility] has multiple operating rooms with single and overlapping rooms running daily. They currently function under the required guidelines as produced by the [facility] Finance Committee with regards to the overlapping rooms and will continue to comply with changes to this policy as they occur. The requirements include and are complied with as follows: (1) the critical portions of the overlapping rooms will not occur at the same time, (2) the attending physician will be physically present during the critical portions of the procedure and immediately available during the entire case, and (3) a back-up attending is designated should the primary attending not be immediately available. The patient has had a chance to review all the listed information, has been given print outs detailing this information, and has had all his/her questions answered to their satisfaction. It was my pleasure to have seen and examined Christina Barnes. In our visit today we have had a chance to go over my understanding of our patient's current condition, the natural course history without intervention and various interventional options. Questions were invited and answered, and the patient wishes to proceed as outlined above. I have seen and examined the patient for 25 minutes and we have spent more than 50% of the time in repeat and detailed counseling about the patient's condition, its natural course history with out and as much as can be predicted with surgery and re-review of various surgical treatment options. In conclusion, Christina [place] and requested we proceed with the above suggested surgery and are willing to accept risks and limitations of the suggested surgery as nature of the disease process and our best attempts at treatment for the condition. Thank you again for allowing us to be part of your patient's care. Please don't hesitate to contact me if you have any further questions. Signed and authenticated by: [employer] P:[id number]\\[id number] \d Kyle [facility] [address] [address]
[~2020-05-22 09:05] MED LIST changes: +ACETAMINOPHEN TAB 500 MG TAB PO PRN; -DEXAMETHASONE SOD PHOSPHATE 10 MG/ML 1 ML VIAL ONE; +DEXAMETHASONE SOD PHOSPHATE 4 MG/ML 1 ML VIAL IV ONE; -IOPAMIDOL M200 10 ML VIAL ONE; -IV FLUID CONTINUATION 1,000 ML IV ONE; -LACTATED RINGERS 1,000 ML IV SCH; +LIDOCAINE 1% (10MG/ML) FOR IV START INTRADERMA PRN; -MIDAZOLAM 2 MG/2 ML VIAL ONE; +ONDANSETRON 4 MG/2 ML VIAL IVP PRN; -SODIUM CHLORIDE 0.9% (PF) 10 ML VIAL ONE; -fentaNYL (PF) 50 MCG/ML 2 ML AMP ONE
[2020-05-22] MEDS: LACTATED RINGERS 1,000 ML IV SCH ×2 (09:51→18:28)
[2020-05-22] MEDS: fentaNYL (PF) 50 MCG/ML 2 ML AMP IVP ONE ×2 (09:58→10:05)
[2020-05-22] MEDS ORDERED: MIDAZOLAM 2 MG/2 ML VIAL ONE (12:46)
[2020-05-22] MEDS ORDERED: fentaNYL (PF) 50 MCG/ML 2 ML AMP ONE (12:46)
[2020-05-22] MEDS ORDERED: LIDOCAINE 1% INJ 10MG/ML (20 ML MDV) ONE (12:46)
[2020-05-22] MEDS ORDERED: KETAMINE 10 MG/ML 20 ML VIAL ONE (12:46)
[2020-05-22] MEDS ORDERED: KETOROLAC 15 MG/ML 1 ML VIAL ONE (12:46)
[2020-05-22] MEDS ORDERED: PHENYLEPHRINE-0.9% NACL SYG 1,000 MCG/10 ML SYRINGE ONE (12:46)
[2020-05-22] MEDS ORDERED: SUCCINYLCHOLINE CHLORIDE 100 MG/5 ML SYR IV ONE (12:46)
[2020-05-22] MEDS ORDERED: DEXAMETHASONE SOD PHOSPHATE 10 MG/ML 1 ML VIAL ONE (12:46)
[2020-05-22] MEDS ORDERED: PROPOFOL 10 MG/ML 20 ML VIAL IV ONE (12:46)
[2020-05-22] MEDS: VANCOMYCIN 1,000 MG in SODIUM CHLORIDE 0.9% 250 ML IVPB PRN ×2 (12:47→13:32)
[2020-05-22] MEDS ORDERED: BUPIVACAINE-EPI 0.5%-1:200,000 10 ML VIAL SQ ONE (13:50)
[2020-05-22] MEDS ORDERED: THROMBIN (BOVINE) 5,000 UNIT VIAL TOPICAL ONE (13:51)
[2020-05-22] MEDS ORDERED: GELATIN SPONGE,ABSORB (LARGE) 1 EACH SPONGE TOPICAL ONE (13:51)
[2020-05-22] MEDS ORDERED: LACTATED RINGERS 1,000 ML IV ONE (15:30)
[2020-05-22] MEDS ORDERED: HYDROcodone/APAP 5-325MG 1 EACH TAB PO PRN (15:31)
[2020-05-22] MEDS ORDERED: DEXAMETHASONE SOD PHOSPHATE 4 MG/ML 1 ML VIAL IV PRN (15:34)
[2020-05-22] MEDS ORDERED: CYCLOBENZAPRINE 10 MG TAB PO PRN (15:34)
[2020-05-22] MEDS ORDERED: ONDANSETRON 4 MG/2 ML VIAL IVP PRN (15:34)
[2020-05-22] MEDS ORDERED: SENNOSIDES 8.6 MG TAB PO PRN (15:34)
[2020-05-22] MEDS ORDERED: ONDANSETRON 4 MG/2 ML VIAL IVP ONE (16:14)
[2020-05-22] MEDS ORDERED: HYDROmorphone 0.5 MG/0.5 ML SYRINGE IVP ONE ×2 (16:17→17:30)
--- NOTE | 2020-05-22 16:22 | XR ---
EXAMINATION TYPE: XR cervical spine limited DATE OF EXAM: 05/22/2020 COMPARISON: NONE HISTORY: Postop TECHNIQUE: 4 views submitted intraoperative FINDINGS: Exam severely limited due to resolution. As apparent postsurgical changes which appear in n ear-anatomic alignment. IMPRESSION: Postsurgical changes
[2020-05-22] MEDS ORDERED: HYDROmorphone 0.2 MG/1 ML SYRINGE IVP ONE (17:00)
[2020-05-22] MEDS ORDERED: SODIUM CHLORIDE 0.9% 1,000 ML IV ONE (17:10)
[2020-05-22] MEDS: KETOROLAC 15 MG/ML 1 ML VIAL IVP SCH (21:34)
[2020-05-22] MEDS: HYDROmorphone 0.5 MG/0.5 ML SYRINGE IVP PRN (21:34)
[2020-05-22] MEDS: GABAPENTIN 300 MG CAP PO SCH ×2 (21:35→21:43)
[2020-05-22] MEDS: 0.9% NACL WITH KCL 20 MEQ/L 1,000 ML IV SCH (21:35)
[2020-05-22] MEDS: INDOMETHACIN 25 MG CAP PO SCH (21:47)
[2020-05-23] MEDS: KETOROLAC 15 MG/ML 1 ML VIAL IVP SCH ×3 (00:42→12:06)
[2020-05-23] MEDS: HYDROmorphone 0.5 MG/0.5 ML SYRINGE IVP PRN ×3 (03:41→08:46)
[2020-05-23] MEDS: 0.9% NACL WITH KCL 20 MEQ/L 1,000 ML IV SCH (05:15)
[2020-05-23 07:18] VITALS: BP 126/82; PULSE 100; RESP 14; TEMP 98.5
[2020-05-23] MEDS: GABAPENTIN 300 MG CAP PO SCH (08:46)
--- NOTE | 2020-05-23 08:48 | XR ---
Cervical spine Limited HISTORY: Postop Frontal and lateral views obtained of the cervical spine, comparison to previous exam MR cervical spi ne 04/09/2020 There has been interval placement of prosthetic disc at the C5-6 and C6-7 level. There is anatomic a lignment. Subcutaneous emphysema is noted incidentally. Cervical vertebral bodies show preserved heig ht and bone mineralization. Prominence of the prevertebral soft tissues is likely postoperative. IMPRESSION: Orthopedic follow-up, additional findings above.
--- NOTE | 2020-05-23 08:51 | P.PN ---
Subjective Progress Note Date: 05/23/20 Principal diagnosis: cervical spondylosis Patient seen and examined this morning. She is doing fairly well. She complains of a lot of pain in her shoulders today. She denies the pain in her arms or numbness or tingling in her arms that she had before and this seems better. She states of difficulty with swallowing but it is getting better and she is able to tolerate light liquids and full liquids. She denies any fevers chills shortness of breath or chest pain at this time. Objective - Vital Signs Vital signs: Vital Signs Temp 98.5 F 05/23/20 07:17 Pulse 100 05/23/20 07:17 Resp 14 05/23/20 07:17 BP 126/82 05/23/20 07:17 Pulse Ox 99 05/23/20 07:17 Intake & Output 05/22/20 05/23/20 05/23/20 18:59 06:59 18:59 Intake Total 1850 600 Output Total 250 Balance 1600 600 Weight 62.8 kg Intake: IV 1850 Intake, IV Titration 600 Amount 0.9% NaCl with KCl 20 Meq 600 /l 1,000 ml @ 75 mls/hr IV .[id number] Rx#: [id number] Output: Urine 175 Estimated Blood Loss 75 Other: Voiding Method Toilet # Voids 2 - Exam Patient is alert and oriented 3 appears well-nourished well-hydrated is in no acute distress. They does not appear septic. On exam the patient has no tenderness to palpation of her thoracic or lumbar spine. There is no edema or ballottement sign. They have good strength in her lower extremities with 5 out of 5 dorsiflexion plantar flexion EHL and FHL bilaterally. Upper extremities show 5/5 strength in all major muscle groups. There is FROM that is painless of the b/l UE and LE in all major joints. They are intact to light touch sensation in L2 to S1 nerve distribution. Patient has palpable dorsalis pedis was posterior tibial pulses. Compartments are soft and compressible. Patient shows a negative Homans, Horton's, negative Babinski's negative clonus bilaterally. negative straight leg raise bilaterally. No tensioning signs.Cranial nerves II through XII are grossly intact. Overall alignment is well-maintained in the sagittal coronal planes. Dressing and incision are clean dry and intact no erythema or ecchymosis or edema no fluctuance. Assessment and Plan Assessment: 41-year-old female postop day 1 C5 6 C6 7 total disc replacement 1. C5-C6, C6-7 disc herniation failed all conservative measures including medications antiiflammatory, pain NSAID and steroid, PT, WALKER and home exercises with continued symptoms regarless of these modalities. 2. left upper extremity radiculopathy and weakness Plan: -Appreciate medicine management. -Pain control: Adequate at this time -Aggressive ambulation protocol. OOB with all meals. OOB or in chair 4-5x daily. -PT/OT -TEDs, SCDs, mechanical ppx. OK for heparin today. Early ambulation is best. -GI ppx. -X-rays of cervical spine reviewed today show good placement of hardware in good position -Trend labs. -Dispo: Home today
[2020-05-23] MEDS: INDOMETHACIN 25 MG CAP PO SCH (08:53)
--- NOTE | 2020-05-23 09:01 | P.DS ---
Providers Date of admission: 05/23/20 08:15 Expected date of discharge: 05/23/20 Attending physician: Kyle Morales, Consults: 05/22/20 15:31 Consult Physician Routine Consulting Provider: Elana Pacheco Consult Reason/Comments: medical management Do you want consulting provider notified?: Yes Primary care physician: Santy Irbyhven Hospital Course: Spine Surgery Discharge Summary Note Admission Date: 05/22/2020 Discharge Date: 05 23 2020 Providers: Carmen Principal Diagnosis: C5-C6 C6 7 spondylosis with stenosis and radiculopathy Procedures: C5 6 C6 7 total disc replacement Discharge Medications: List Allergies: Penicillin Hospital Course: The patient was evaluated preoperatively and found to have the diagnosis of C5 6 C6 7 spondylosis with stenosis and radiculopathy. They underwent appropriate preoperative care and were willing to undergo the intended procedure. They underwent a successful C5 6 C6 7 total disc replacement, were recovered appropriately and sent to the floor. While on the floor they worked with physical therapy, occupational therapy and nursing to enhance their recovery experience. Their pain was well controlled through their stay and they were started on appropriate medications, DVT ppx modalities, activity and dietary needs. Daily labs were monitored closely, and transfusions were only used when necessary. Medicine as well as other consulting services have made their input and have helped with our team approach and multidisciplinary care. PT milestones have been met and passed and they have made the recommendation of home for this patient and treating providers agree with this care path. The patient will be discharged home with appropriate medications, instructions and follow-up information and in stable condition. Patient Condition at Discharge: Stable Plan - Discharge Summary Discharge Rx Participant: No New Discharge Prescriptions: New clindamycin HCL [Cleocin] 300 mg PO Q8H 3 Days #10 cap Cyclobenzaprine [Flexeril] 10 mg PO TID PRN #40 tab PRN Reason: Spasms Gabapentin 300 mg PO TID 3 Days #9 cap Indomethacin [Indocin] 50 mg PO BID 14 Days #30 capsule HYDROcodone/APAP 5-325MG [Franklin 5-325] 1 - 2 tab PO Q4H PRN #56 tab PRN Reason: Pain Sennosides/Docusate Sodium [Senna Plus 8.6-50 mg Softgel] 1 each PO BID PRN #20 capsule PRN Reason: Constipation No Action Ibuprofen [Motrin] 600 - 800 mg PO Q6HR PRN PRN Reason: Pain Vilazodone HCl [Viibryd] 40 mg PO DAILY Furosemide [Lasix] 20 mg PO DAILY Multivitamin [Multivitamins Adult Gummies] 1 each PO DAILY Calcium Carbonate/Vitamin D3 [Calcium 500-Vit D3 200 Tablet] 1 each PO DAILY Omeprazole 20 mg PO DAILY HYDROcodone/APAP 10-325MG [Franklin 10-325] 0.5 tab PO BID PRN PRN Reason: Pain tiZANidine [Zanaflex] 4 mg PO Q6HR PRN PRN Reason: Muscle Spasm Topiramate [Topamax] 25 mg PO DAILY Potassium Chloride ER [K-Dur 10] 20 meq PO DAILY Discharge Medication List Ibuprofen [Motrin] 600 - 800 mg PO Q6HR PRN 12/19/15 [History] Vilazodone HCl [Viibryd] 40 mg PO DAILY 12/19/15 [History] Calcium Carbonate/Vitamin D3 [Calcium 500-Vit D3 200 Tablet] 1 each PO DAILY 11/28/19 [History] Furosemide [Lasix] 20 mg PO DAILY 11/28/19 [History] Multivitamin [Multivitamins Adult Gummies] 1 each PO DAILY 11/28/19 [History] Omeprazole 20 mg PO DAILY 11/28/19 [History] HYDROcodone/APAP 10-325MG [Franklin 10-325] 0.5 tab PO BID PRN 05/16/20 [History] Potassium Chloride ER [K-Dur 10] 20 meq PO DAILY 05/16/20 [History] Topiramate [Topamax] 25 mg PO DAILY 05/16/20 [History] tiZANidine [Zanaflex] 4 mg PO Q6HR PRN 05/16/20 [History] Cyclobenzaprine [Flexeril] 10 mg PO TID PRN #40 tab 05/23/20 [Rx] Gabapentin 300 mg PO TID 3 Days #9 cap 05/23/20 [Rx] HYDROcodone/APAP 5-325MG [Franklin 5-325] 1 - 2 tab PO Q4H PRN #56 tab 05/23/20 [Rx] Indomethacin [Indocin] 50 mg PO BID 14 Days #30 capsule 05/23/20 [Rx] Sennosides/Docusate Sodium [Senna Plus 8.6-50 mg Softgel] 1 each PO BID PRN #20 capsule 05/23/20 [Rx] clindamycin HCL [Cleocin] 300 mg PO Q8H 3 Days #10 cap 05/23/20 [Rx] Follow up Appointment(s)/Referral(s): Kyle Morales DO [Doctor of Osteopathic Medicine] - 2 Weeks Activity/Diet/Wound Care/Special Instructions: Spine Discharge and Recovery Instructions Date of Surgery: 05/22/2020 Diagnosis: C5-C6 C6 7 spondylosis with stenosis and radiculopathy Procedure: C5 6 C6 7 total disc replacement Medications: See list All medication refills should be obtained through your primary care doctor or y our clinic spine surgeon. Please discuss prescription refills at your follow up appointment. Do not call the hospital for medication refills. Dressing: Leave your dressing in place for a total of 3 days post operatively. Then you may remove your dressing and leave open to air. Keep the area clean and if not able to keep area clean, then cover with sterile gauze and tape. Showering: You may shower 3 days after your procedure allowing soap and water to run over incision. Do not scrub. Do not soak. Blot dry. Wear soft collar when up and about and while riding a car may remove for showering and sleeping as comfortable. Follow up: Please confirm a follow up appointment with your surgeon 2 weeks post operatively. Please make an appointment to follow up with your PCP in 1-2 weeks after surgery for evaluation 3 phase, 3-week plan POST OP WEEKS 1-3 1. Lifting/carrying/pushing/pulling limited to less than 5 pounds. 2. Do not sit for longer than 15 minutes at one time. Get up and walk around. Prolonged sitting is NOT advised. If you lay down, see if you can tolerate laying down on you front (belly side) 3. Walk for periods of 15 minutes = 1 mile but no longer; do it multiple times times each day. 4.Ice your low back after activity. POST OP WEEKS 3-6 1. Lifting limited to less than 20 pounds. 2. Do not sit for longer than 30 minutes at a time. Frequently change positions. Use a sit-to stand workstation or take frequent breaks from sitting if you have returned to work. 3. Walk for 30 minutes each day. If possible, do these three or more times a day POST OP WEEKS 6+ At your 6-week appointment we will give you a physical therapy referral to focus on a core stabilization and strengthening program. You should also work on leg & buttock strengthening, hamstring & quadriceps stretching, and continue a low impact aerobic activity program such as swimming, walking, or riding a stationary bicycle. During the initial 6 weeks after your surgery, you are at the highest risk of re-injuring your spine. You should generally avoid BLTs (bending, lifting and twisting combination motions) and follow the above guidelines to reduce the chance of reinjury. You can anticipate post op appointments in our office at approximately 3 weeks and 6 weeks after your surgery. INCISION CARE: If your incision is not draining you do NOT need to cover it with a dressing. Keep your incision clean, dry and intact. In most cases, we apply skin glue, fco or sutures to the incision at the time of surgery. This will be like a crust or have the appearance of a scab and will fall off in time on its own. The stitches or fco need to be removed at 3 weeks post op appointment. You may begin to shower 3 days after surgery (this allows the glue to mcdonald well). However, please avoid scrubbing the incision site or peeling off any of the skin glue. This will ensure optimal healing of your incision. Also, during this time avoid soaking the incision area in water - this includes swimming pools, hot tubs or baths. No ointments, lotions or oils on the incision until your surgeon allows. Leave fco, sutures or glue in place. Neurological dysfunction that comes on suddenly can also be a sign of a stroke. Below some common symptoms of a stroke are listed: B - balance difficulty such as sudden onset walking or leaning to one side - NEW E - eye problem such as sudden double vision or trouble seeing on one side - NEW F - Facial weakness or numbness on one side - NEW A - Arm or leg weakness or numbness on one side - NEW S - Slurred speech or difficulty with word finding - NEW T - Time is BRAIN! Call 911 as soon as you recognize these symptoms Diet: Consume a regular diet rich in vegetables and lean protein such as chicken or fish. You should consume in a ratio of approximately 20% fats|40% carbohydrates|40%protein. Vegetables, sweet potatoes, brown rice or quinoa are examples of good carbohydrates. Chips, white bread, cookies and sweets/sugar are examples of bad carbohydrates. Limit your bad carbs, go wild with good carbs. "Life's Simple 7" Guidelines as per [place] [employer] These will help you reclaim your life after surgery and filter tank tender helper in your recovery, keeping in mind your restrictions. (1) Get Active. Physical activity can help people lose weight, control high blood pressure and cholesterol, feel emotionally better, and sleep better. (2) Control Cholesterol. Avoid a diet high in saturated fat, trans fat, & cholesterol. Limit whole milk & cream, ice cream, butter, egg yolks, processed meats (like sausage and hot dogs), and fatty meats. Choose healthy foods that are low in saturated fat, trans fat and cholesterol which include: Fruits and vegetables, fiber rich grain products (like whole grain pasta and brown rice), lean meat such as chicken, fish, nuts, seeds, and legumes. (3) Eat Better. Eat small portions. Shop at the grocery with a list and do not stray from it. Tips for a healthy diet include: Limit sodium intake to less than 1500mg daily, avoid prepackaged, processed, and fast foods, choose a diet rich in fruits, vegetables, and whole grain, high fiber foods, and limit saturated & cholesterol in your diet. (4) Manage Blood Pressure. If you have high blood pressure, you should have a cuff at home so that you can check your blood pressure regularly. Be sure you have a good cuff. An arm one is generally better than a wrist one. Bring the cuff to a doctor's appointment to validate that the measurements that your cuff are taking are accurate. Take your blood pressure twice daily when you are sitting down and relaxing. Record the numbers in a log and bring this log with you to your doctors' appointments. (5) Lose Weight if your BMI is above 25. A healthy BMI is between 19-25. To calculate Your BMI, you may use a Standard BMI Calculator on the NIH BMI website: <www.nhlbi.nih.gov/guidelines/obesity/BMI/bmicalc.htm>. Weigh oneself daily. If you are overweight, set a goal to lose weight. A pound a week loss if needed is a good target. (6) Reduce Blood Sugar. Limit foods and liquids with "added sugars." (Added sugars include sucrose, fructose, glucose, maltose, dextrose, high fructose corn syrup, corn syrup, concentrated fruit juice and honey). (7) Stop Smoking. If you smoke, quitting smoking is one of the best things that you can do for your health. Smoking increases your risk of heart attack, stroke, and peripheral vascular disease, which is a build-up of plaque in your arteries. Please discard all the cigarettes and lighters in your house. Have a plan for what you will do when you have the urge to smoke. Direct and second- hand smoke shortens your life as well as the lives of your family, friends and others around you. For your health and the health of those around you, please consider quitting! Proper Bending Body Mechanics: Maintain a wide stance with one foot slightly in front of the other. Keep your back straight. Bend utilizing the strength in your hips and knees. Do not bend at the waist. Maintain the lifted object at your waist-level close to your body. Avoid lifting weight that causes immediately pain or pain anywhere in the body afterwards. Smoking/Nicotine If there was ever one thing that you could do to increase your overall health, decrease your risk of cardiovascular problems by about 39% the second you make the choice, it is to STOP SMOKING. Your body's most instant gratification is the second you stop smoking. We have all heard the studies, read the articles but it is true, smoking is extremely bad for your overall health, and moreover it is detrimental to your bone health. Nicotine, IN ANY FORM, kills bone cells, prevents your body from healing fractures, and significantly prolongs healing after surgery. In spine surgery specifically, it increases your risk of not healing your bones to create a fusion and increases your risk of having a revision surgery due to this up to 60%. I know it is hard. I know it feels impossible. But there are ways. Take control of your life. We are here to help you through it. And when you are ready, ask us and we can direct you to help if you desire. Use the START Plan to Quit Smoking (please visit the [employer]org website listed below for more information): S = Set a quit date. Choose a date within the next 2 weeks, so you have enough time to prepare without losing your motivation to quit. If you mainly smoke at work, quit on the weekend, so you have a few days to adjust to the change. T = Tell family, friends, and co-workers that you plan to quit. Let your friends and family in on your plan to quit smoking and tell them you need their support and encouragement to stop. Look for a quit eliu who wants to stop smoking as well. You can help each other get through the rough times. A = Anticipate and plan for the challenges you'll face while quitting. Most people who begin smoking again do so within the first 3 months. You can help yourself make it through by preparing ahead for common challenges, such as nicotine withdrawal and cigarette cravings. R = Remove cigarettes and other tobacco products from your home, car, and work. Throw away all your cigarettes (no emergency pack!), lighters, ashtrays, and matches. Wash your clothes and freshen up anything that smells like smoke. Shampoo your car, clean your drapes and carpet, and steam your furniture. T = Talk to your doctor about getting help to quit. Your doctor can prescribe medication to help with withdrawal and suggest other alternatives. If you can't see a doctor, you can get many products over the counter at your local pharmacy or grocery store, including the nicotine patch, nicotine lozenges, and nicotine gum. Resources for Quitting Smoking: <https://www.[place].gov/do cuments/[facility]/Quit_Tobacco_Resources_for_patients_313480_7.pdf> Supplementation: Take recommended dosages of Vitamin D and Calcium to help fortify your bones and help them to heal. See your health maintenance packet for dosages and recommended levels. DVT/VTE prophylaxis: You will be given compression stockings from the hospital. Wear these daily for the first two weeks after surgery. You may take them off at night. You may be prescribed a medication to help thin your blood. Take this as directed. If you are not prescribed this medication, early and frequent ambulation has been shown to be the best prophylaxis to deep vein thrombosis and sequelae related to this event. Discharge Disposition: HOME SELF-CARE
--- NOTE | 2020-05-23 09:56 | FL ---
Fluoroscopy HISTORY: Discectomy 2 minute 16 seconds fluoroscopy time supplied to the referring clinician. 4 intraoperative C-arm cesia ges document the procedure. See dictated report from orthopedic surgery.
[2020-05-23 10:23] LABS: Basophils # (A) 0.01 X 10*3/uL (0.00-0.10); Basophils % (A) 0.1 %; Eosinophils # (A) 0 X 10*3/uL (0.04-0.35); Eosinophils % (A) 0 %; HCT 35.9 % (37.2-46.3); HGB 12.1 g/dL (12.0-15.0); Lymphocytes # (A) 0.77 X 10*3/uL (0.90-5.00); Lymphocytes % (A) 9.5 %; MCH 30.1 pg (27.0-32.0); MCHC 33.7 g/dL (32.0-37.0); MCV 89.3 fL (80.0-97.0); Mean Platelet Volume 9.7 fL (9.5-12.2); Monocytes # (A) 0.69 X 10*3/uL (0.20-1.00); Monocytes % (A) 8.5 %; Neutrophils % (A) 81.5 %; Platelet Count 299 X 10*3/uL (140-440); RBC 4.02 X 10*6/uL (4.10-5.20); RDW 11.9 % (11.5-14.5)
[2020-05-23 10:52] LABS: African American GFR (CKD) 77.2 (60.0-200.0); Anion Gap 11.3 mmol/L (4.00-12.00); Calcium 8.8 mg/dL (8.7-10.3); Carbon Dioxide 21.7 mmol/L (21.6-31.8); Non-African American GFR(CKD) 66.6 (60.0-200.0)
--- NOTE | 2020-05-23 14:38 | P.OP ---
Date of Procedure: 05/22/20 Preoperative Diagnosis: 1. C5-6 and C6-7 spondylosis 2. C5-6 and C6-7 herniated nucleus pulposis 3. b/l UE pain, radiculopathy and weakness Postoperative Diagnosis: 1. C5-6 and C6-7 spondylosis 2. C5-6 and C6-7 herniated nucleus pulposis 3. b/l UE pain, radiculopathy and weakness Procedure(s) Performed: 1. C5-6 Total disc replacement 2. C6-7 Total disc replacement 3. Use of intraoperative microscope Implants: PRodisc C 6 mm Large x2 Anesthesia: GETA Surgeon: Kyle Morales (Anabella Au FA was present for the entire case and was necessary due to the complexity of the case) Estimated Blood Loss (ml): 75 IV fluids (ml): 1,200 Urine output (ml): 250 Pathology: none sent Condition: stable Disposition: PACU Indications for Procedure: This 48 year old female presents with 6 months of neck pain. She notes right sided pain and numbness that radiates into her shoulder and down into her hand. Patient also has history of left sided pain and numbness. She has limited range of motion. Patient had previous bilateral carpal tunnel release surgery. Patient takes Motrin and Aleve as needed. She takes Prednisone 10mg daily and has been taking of the last 3 weeks which seems to help her but is not taking well her symptoms. She states when she is off of the prednisone her symptoms return. She states that physical therapy was done on her most recent visit was about 3 weeks ago and it did help although minimally. She currently states some numbness and tingling down her arm into her hand but does not state any weakness. She states she does have some trouble with buttoning her shirt but no other find motor skill deficits. She denies any fevers chills shortness breath or chest pain at this time. She denies any bowel or bladder control issues. She denies any imbalance issues. Despite an array of conservative measures, all have failed including extensive PT, home exercises, medications OTC and Rx as well as injections. She has not improved with any of these and is ready for surgical intervention. Operative Findings: C6-7 large disc herniation with stenosis C5-6 stenosis and spondylosis Description of Procedure: The patient was seen and examined in the preoperative area. All preoperative protocols were followed. Informed consent was obtained risks and benefits of the procedure were discussed at length. Risks including bleeding infection damage to the surrounding tissue and risk of reoperation were discussed with the patient. Risk of anesthesia up to and including was a discussed with the patient. These are outlined in the risk review. They were willing to accept these risks and all of the risks of surgery. The patient was given a weight- based dose of antibiotics in the form of vancomycin 1 g IVPB. The patient was seen and evaluated by the anesthesia team who deemed them fit for surgery. The site was marked, the patient was willing to proceed with the procedure. The patient was transferred to the operative suite by the Department of anesthesia. They were then drifted off to sleep by the department anesthesia GETA. The patient tolerated this well. [Adkins catheter was placed by nursing staff, atraumatically]. Once confirmation of lines and ventilation the patient was transferred to a supine flat Will table very carefully. Arms were tucked at the side and well-padded. A bump was placed in the patient's shoulders as well as a roll under the patient's neck for support All bony prominences including wrists, elbows, axilla, chest, hips, and thighs, and feet were padded very well. Special attention was paid to the genitalia and these were padded accordingly. SCDs were placed on bilateral lower extremities and were connected. Arms were well padded and placed at the patient's side. Once in position, again we confirmed good ventilation capabilities and that lines were running appropriately. The patient's anterior cervical spine was then exposed. 1010s were placed outlining the incision site. Standard alcohol was used to clean the incision site and allowed to dry. C-arm was used to biomark the patient and confirm level for incision which was marked with a skin marker. Operative briefing was performed with all teams and everyone in agreement to proceed. The patient was then prepped and draped in a normal sterile fashion. Timeout was then performed and all parties were in agreement with the procedure to be performed. Skin incision was made over the previously bio marked area and standard Waite- Guzman approach anterior cervical spine was taken. Once we were at the level of the anterior cervical spine a Cobalt 4 was used to verenice out a lateral fluoroscopic image the C5-C6 interspace. Once this was identified it was then marked with a Bovie. We then placed our retractors. Electrocautery and bipolar dissection was then used to expose C5 6 and C6 7 disc spaces and to create longitudinal flaps in the longissimus muscle. Retractors then placed deep to last longissimus muscles allow visualization of the uncovertebral joints bilaterally. A Alex was then used to remove the disc at C6 7 first this confirmed under lateral fluoroscopy. This was then removed and the endplates were scraped using curettes. We then placed distraction pins in the C6 body as well as the C7 body and distractors placed with any used lateral fluoroscopic imaging to allow for parallel distraction in this area. Once a good parallel distraction we could visualize the PLL. Once the PLL was visualized and was scraped and high-speed bur was used to remove osteophytes posteriorly. The PLL was then resected using Kerrison rongeurs as well as a 60 up-biting curet. We performed foraminotomies bilaterally with a 2 Kerrison. We pulled a large amount of disc material from the right-sided foramen. Once we did remove the disc in this area and perform the foraminotomies we are able to easily pass a Adler ball probe through these areas signifying good decompression. We then used a trial to size the implant and under lateral and AP fluoroscopy confirmed good placement centrally as well as posteriorly along the posterior body line. The distraction was then removed and the trial was in place we then used the high-speed bur to bur through the jig the keel holes. Once these were burred the jig was removed and a chisel was placed over the implant and impacted into place under lateral fluoroscopy confirming good placement. We then removed the trial and irrigated the endplates as well as the bur holes. We then clean the bur holes with a scraper. The bur holes were in good position and there was good decompression we performed meticulous hemostasis deep with FloSeal. The final implant was then impacted into place under lateral fluoroscopy and confirmed to be in good position under AP and lateral fluoroscopy. We then removed the distraction pin from the C7 body and placed bone wax in its void with internal attention to the C5 6 level we placed a distraction pin in the C5 vertebral body's allowed for distraction in this area. We then performed complete discectomy of C5-C6. Once this was performed and the posterior longitudinal ligament encountered the posterior longitudinal ligament was resected. Bilateral foraminotomies were then performed using Kerrison rongeur. Meticulous hemostasis was performed using FloSeal. We then chose a trial for the C5 6 level and impacted the trial in place and the under AP and lateral fluoroscopy and confirmed it was in good position once in good position we removed distraction and the trial was in good place we then burred the keel holes for the trial removed the jig and placed the chisel and impacted this into place under lateral fluoroscopy which confirmed good position. We then removed the trial and the chisel and irrigated out the areas and scraped out the keel holes. Meticulous hemostasis was again performed using FloSeal. Final implant was then selected and impacted into place under lateral fluoroscopy. We confirmed good position under AP and lateral fluoroscopy the implants were stable. We then removed the distraction pins from C5 and C6 and placed bone wax and other void. Bone wax was meticulously placed over the keel areas anteriorly to prevent any excess bone formation or bleeding in these areas. The patient had very vascular bone and so we placed bone wax where needed. The wound was then copiously irrigated with normal sterile saline final AP and lateral shots were taken confirming good placement of implants. The esophagus was inspected and there was no damage visible. No drain was needed in this case. The platysmal flap was repaired with 3-0 Vicryl subcu was closed with 3-0 Vicryl and the skin closed with a running 4-0 Monocryl. This was then sterilely cleaned and dressed with exophin glue followed by Telfa and Tegaderms. The patient was transferred back to her hospital bed atraumatically. Patient was then awakened and extubated by the department of anesthesia having tolerated the procedure very well with no complications. she was transferred to the postoperative care unit in stable condition.
--- NOTE | 2020-05-23 18:25 | PN ---
PROGRESS NOTE DATE OF SERVICE: 05/23/2020 CHIEF COMPLAINT: Postoperative cervical spondylosis and disc disease. HISTORY OF PRESENT ILLNESS: This lady is doing well except for some discomfort. She is not having any neurologic issues, fever, chills, etc. She will probably go home today. PHYSICAL EXAMINATION: Her chest is clear. Cardiac exam is normal. The abdomen is soft and nontender. IMPRESSION: Cervical spondylosis and disc disease. PLAN: Probably home today. MMODL / IJN: [id number] /
--- NOTE | 2020-05-23 20:00 | CONS ---
CONSULTATION CHIEF COMPLAINT: Cervical spondylosis and disc disease with radiculopathy. HISTORY OF PRESENT ILLNESS: This lady is in for an elective laminectomy. She is doing well. REVIEW OF SYSTEMS: She is having some discomfort in the back of the head and neck, but otherwise doing well. She denies shortness of breath, cough, chills, chest pain, abdominal pain, nausea, vomiting, diarrhea, melena, dysuria, frequency, urgency, incontinence, diabetes, chills, fever, etc. Past medical history, family history, and personal and social histories can all be found in detail in her admitting note. Her medications have included: 1. Diclofenac external gel 1%. 2. Topiramate 25 mg once a day. 3. Tizanidine 4 mg 3 times a day. 4. KCl 10 mEq once a day. 5. Vicodin 10 twice a day as needed. 6. Vitamin D3. 7. Lasix 20 mg once a day. 8. Omeprazole 20 mg once a day. 9. Viibryd 40 mg once a day. ALLERGIES: PENICILLIN. The remainder of her history is unremarkable. She does not smoke or drink. PHYSICAL EXAMINATION: Blood pressure is 112/64 with a pulse 73, respirations of 18. She is afebrile. In general she appears to be slender, well developed, in no acute distress. Skin color is normal. Skin is warm and dry. Lymph nodes are not enlarged. Head, ears, eyes, nose, mouth and throat are normal. Neck veins are not distended. Thyroid is not enlarged. Chest is clear. Cardiac exam is normal. The abdomen is soft, nontender. Extremities are normal. IMPRESSION: Cervical spondylosis and disc disease with radiculopathy. RECOMMENDATIONS: None. She seems to be doing well and, should she experience any medical problems while in the hospital, I would be happy to assist. Thank you. Respectfully, Santy Dunbar II, M.D. QUINCY / KATHERINE: [id number] /
== END 2020-05-23 14:20 | disposition home or self-care (01) ==
LOC: OR 09:05 → 6NMEDSUR 17:02 → OR 05-23 08:15
PROVIDERS: ADMIT Orthopaedic Surgery; ATTEND Orthopaedic Surgery
DX: M50.122 Cervical disc disorder at C5-C6 level with radiculopathy (principal); M50.123 Cervical disc disorder at C6-C7 level with radiculopathy; M47.22 Other spondylosis with radiculopathy, cervical region; M48.02 Spinal stenosis, cervical region; R53.1 Weakness; K21.9 Gastro-esophageal reflux disease without esophagitis; Z98.1 Arthrodesis status; G56.03 Carpal tunnel syndrome, bilateral upper limbs; Z80.8 Family history of malignant neoplasm of other organs or systems; Z80.3 Family history of malignant neoplasm of breast; Z79.899 Other long term (current) drug therapy; Z86.69 Personal history of other diseases of the nervous system and sense organs
CPT/HCPCS: 81025; 80048; 85025; 72040 ×2; 22856; 22858; 63045; 63048; G0378; L0120; C1713; C1762; J2250; J3370; J1100 ×2; J2405; J2001; J3010; J1885 ×2; J2370; J0330; J2704; J1170 ×3; 86850; 86900; 86901; 87070

== ENCOUNTER → 2020-10-31 | Outpatient (CLI) | payer OTHER ==
--- NOTE | 2020-10-31 21:56 | CT ---
EXAMINATION TYPE: CT cervical spine wo con DATE OF EXAM: 10/31/2020 COMPARISON: Radiograph cervical spine 05/23/2020 HISTORY: Cervicalgia. CT DLP: 331.3 mGycm Automated exposure control for dose reduction was used. TECHNIQUE: CT scan of the cervical spine is obtained without contrast, axial images are obtained, sa gittal and coronal reformatted images are also reviewed. FINDINGS: Cervical spine is visualized in its entirety from C1 through upper thoracic levels, demonst rates straightening of the cervical lordosis without evidence of acute fracture or dislocation. Redemonstration of intervertebral disc spacers at C5-C6 and C6-C7. Artifact at these level limits ass essment of the spinal canal and paravertebral soft tissues, otherwise no high-grade canal or foramina l stenosis or prevertebral soft tissue abnormality is visualized. The C1-C2 articulation is within n ormal limits on the coronal images. Predental space is not widened. IMPRESSION: Redemonstration of intravertebral disc spaces at C5-C6 and C6-7. No evidence of complicat ion, acute fracture or subluxation.
== END | disposition home or self-care (01) ==
LOC: RADCTMAIN 18:18
PROVIDERS: ATTEND Orthopaedic Surgery
DX: M54.2 Cervicalgia (principal)
CPT/HCPCS: 72125

== ENCOUNTER 2021-09-25 10:40 | Emergency (ER) | payer OTHER ==
[2021-09-25 10:50] VITALS: TEMP 97
[2021-09-25] MEDS ORDERED: ONDANSETRON 4 MG/2 ML VIAL IVP STA (11:15)
[2021-09-25] MEDS ORDERED: KETOROLAC 15 MG/ML 1 ML VIAL IVP STA (11:15)
[2021-09-25] MEDS ORDERED: SODIUM CHLORIDE 0.9% 1,000 ML IV STA (11:15)
[2021-09-25 12:15] LABS: Basophils # (A) 0.1 k/uL (0-0.2); Basophils % (A) 1 %; Eosinophils # (A) 0.2 k/uL (0-0.7); Eosinophils % (A) 2 %; HCT 43.9 % (34.0-46.0); HGB 14.5 gm/dL (11.4-16.0); Lymphocytes # (A) 2.9 k/uL (1.0-4.8); Lymphocytes % (A) 31 %; MCH 29.6 pg (25.0-35.0); MCV 89.9 fL (80.0-100.0); Mean Platelet Volume 6.8; Monocytes # (A) 0.8 k/uL (0-1.0); Monocytes % (A) 8 %; Neutrophils # (A) 5.2 k/uL (1.3-7.7); Neutrophils % (A) 56 %; Platelet Count 335 k/uL (150-450); RBC 4.88 m/uL (3.80-5.40); RDW 13.3 % (11.5-15.5); WBC 9.4 k/uL (3.8-10.6)
[2021-09-25 12:17] LABS: Appearance,Urine Clear (Clear); Bilirubin,Urine Negative (Negative); Blood,Urine Negative (Negative); Color,Urine Colorless; Glucose,Urine (UA) Negative (Negative); Ketones,Urine Negative (Negative); Leukocyte Esterase,Urine Negative (Negative); Nitrite,Urine Negative (Negative); Protein,Urine Negative (Negative); Specific Gravity,Urine 1.004 (1.001-1.035); Urobilinogen,Urine <2.0 mg/dL (<2.0)
[2021-09-25 12:26] LABS: Albumin 4.6 g/dL (3.5-5.0); Potassium 3.2 mmol/L (3.5-5.1); Total Bilirubin 0.3 mg/dL (0.2-1.3)
[2021-09-25] MEDS ORDERED: POTASSIUM CHLORIDE ER 10 MEQ TAB.ER.PRT PO STA (12:33)
--- NOTE | 2021-09-25 12:40 | ED ---
Abdominal Pain HPI - General Chief Complaint: Abdominal Pain Stated Complaint: abd pain Time Seen by Provider: 09/25/21 11:02 Source: patient, family, RN notes reviewed Mode of arrival: ambulatory Limitations: no limitations - History of Present Illness Initial Comments: This is a 50-year-old female who presents to the emergency department for abdominal pain, constipation, bloating, and blood in the stool. Patient states that this is been ongoing for approximately 2 weeks. Patient states that whenever she has a bowel movement, she "feels like her insides are going to come out ". She has a family history of colon cancer in her mother, which is why she is particularly concerned. She did recently submit a Cologuard test, however she has not yet received the results. She does take Zofran regularly, which has prevented any associated nausea or vomiting. She does notice bright red blood in her stool on occasions as well. She has an upcoming appointment with gastroenterology, however she states that this is months away and she cannot wait that long. Denies any fevers, chills, sore throat, cough, dyspnea, chest pain, palpitation s, nausea, vomiting, diarrhea, back pain, or headaches. MD Complaint: abdominal pain Onset/Timin -: week(s) Location: diffuse Associated Symptoms: constipation - Related Data Home Medications Medication Instructions Recorded Confirmed Ibuprofen [Motrin] 600 - 800 mg PO Q6HR PRN 12/19/15 05/16/20 Vilazodone HCl [Viibryd] 40 mg PO DAILY 12/19/15 05/16/20 Calcium Carbonate/Vitamin D3 1 each PO DAILY 11/28/19 05/16/20 [Calcium 500-Vit D3 200 Tablet] Furosemide [Lasix] 20 mg PO DAILY 11/28/19 05/16/20 Multivitamin [Multivitamins Adult 1 each PO DAILY 11/28/19 05/16/20 Gummies] Omeprazole 20 mg PO DAILY 11/28/19 05/16/20 HYDROcodone/APAP 10-325MG [Newman 0.5 tab PO BID PRN 05/16/20 05/16/20 10-325] Potassium Chloride ER [K-Dur 10] 20 meq PO DAILY 05/16/20 05/16/20 Topiramate [Topamax] 25 mg PO DAILY 03/03/21 03/03/21 tiZANidine [Zanaflex] 4 mg PO Q6HR PRN 05/16/20 05/16/20 Previous Rx's Medication Instructions Recorded Cyclobenzaprine [Flexeril] 10 mg PO TID PRN #40 tab 05/23/20 Gabapentin 300 mg PO TID 3 Days #9 cap 05/23/20 HYDROcodone/APAP 5-325MG [Newman 1 - 2 tab PO Q4H PRN #56 tab 05/23/20 5-325] Indomethacin [Indocin] 50 mg PO BID 14 Days #30 capsule 05/23/20 Sennosides/Docusate Sodium [Senna 1 each PO BID PRN #20 capsule 05/23/20 Plus 8.6-50 mg Softgel] clindamycin HCL [Cleocin] 300 mg PO Q8H 3 Days #10 cap 05/23/20 Lactulose 20 gm PO TID #16 oz 09/25/21 Na Phos,M-B/Na Phos,Di-Ba [Fleet 133 ml RECTAL ONCE #113 ml 09/25/21 Adult] Allergies Allergy/AdvReac Type Severity Reaction Status Date / Time Penicillins Allergy Anaphylaxis Verified 09/25/21 10:50 Review of Systems ROS Statement: Those systems with pertinent positive or pertinent negative responses have been documented in the HPI. ROS Other: All systems not noted in ROS Statement are negative. Past Medical History Past Medical History: No Reported History Additional Past Medical History / Comment(s): c/o abd pain, bloating & blood in stools History of Any Multi-Drug Resistant Organisms: None Reported Past Surgical History: Appendectomy, Orthopedic Surgery, Tonsillectomy Additional Past Surgical History / Comment(s): paula.carpal tunnel Past Anesthesia/Blood Transfusion Reactions: Motion Sickness, Postoperative Nausea & Vomiting (PONV) Additional Past Anesthesia/Blood Transfusion Reaction / Comment(s): PONV only w/appy. Past Psychological History: Anxiety, Depression Smoking Status: Never smoker Past Alcohol Use History: None Reported Past Drug Use History: None Reported - Past Family History Mother Family Medical History: Cancer Additional Family Medical History / Comment(s): colon & Breast CA Sister(s) Family Medical History: Cancer Additional Family Medical History / Comment(s): Osteosarcoma General Exam Limitations: no limitations General appearance: alert, in no apparent distress Head exam: Present: atraumatic, normocephalic, normal inspection Respiratory exam: Present: normal lung sounds bilaterally. Absent: respiratory distress, wheezes, rales, rhonchi, stridor Cardiovascular Exam: Present: regular rate, normal rhythm, normal heart sounds. Absent: systolic murmur, diastolic murmur, rubs, gallop, clicks GI/Abdominal exam: Present: hyperactive bowel sounds, other (Fullness to the abdomen on palpation) Neurological exam: Present: alert, oriented X3, CN II-XII intact Psychiatric exam: Present: normal affect, normal mood Skin exam: Present: warm, dry, intact, normal color. Absent: rash Course Vital Signs 09/25/21 09/25/21 09/25/21 10:45 13:37 15:12 Temperature 97.0 F L Pulse Rate 109 H 98 79 Respiratory 18 17 20 Rate Blood Pressure 128/74 114/69 144/69 O2 Sat by Pulse 100 99 99 Oximetry Medical Decision Making - Medical Decision Making This is a 50-year-old female who presents to the emergency department with con stipation and abdominal pain. Lab work revealed hypokalemia. Patient was given 10 mEq of K-dur. Computed tomography scan of the abdomen and pelvis consistent with constipation. Patient given a fleet enema to take home and these were sent to her pharmacy as well. She was also given a dose of Lactulose and this was prescribed as well. She should continue taking her probiotics and increase fiber and water intake. We discussed several medications for irritable bowel syndrome with constipation such as Linzess and Amitiza, however this is something she needs to discuss with her primary care provider or a hand packer, as they will require close monitoring and can have many unpleasant side effects. Return precautions reviewed in depth, the patient is instructed to return to the emergency department with any new, worsening, or concerning symptoms. Patient verbalized understanding. This case was discussed in detail with the attending ED physician. Presentation, findings, and treatment plan discussed in detail as well. - Lab Data Result diagrams: 09/25/21 11:27 09/25/21 11: Lab Results 09/25/21 09/25/21 09/25/21 Range/Units 11:27 11:27 11:27 WBC 9.4 (3.8-10.6) k/uL RBC 4.88 (3.80-5.40) m/uL Hgb 14.5 (11.4-16.0) gm/dL Hct 43.9 (34.0-46.0) % MCV 89.9 (80.0-100.0) fL MCH 29.6 (25.0-35.0) pg MCHC 33.0 (31.0-37.0) g/dL RDW 13.3 (11.5-15.5) % Plt Count 335 (150-450) k/uL MPV 6.8 Neutrophils % 56 % Lymphocytes % 31 % Monocytes % 8 % Eosinophils % 2 % Basophils % 1 % Neutrophils # 5.2 (1.3-7.7) k/uL Lymphocytes # 2.9 (1.0-4.8) k/uL Monocytes # 0.8 (0-1.0) k/uL Eosinophils # 0.2 (0-0.7) k/uL Basophils # 0.1 (0-0.2) k/uL Sodium 138 (137-145) mmol/L Potassium 3.2 L (3.5-5.1) mmol/L Chloride 98 (98-107) mmol/L Carbon Dioxide 28 (22-30) mmol/L Anion Gap 12 mmol/L BUN 6 L (7-17) mg/dL Creatinine 0.95 (0.52-1.04) mg/dL Est GFR (CKD-EPI)AfAm 82 (>60 ml/min/1.73 sqM) Est GFR (CKD-EPI)NonAf 71 (>60 ml/min/1.73 sqM) Glucose 95 (74-99) mg/dL Plasma Lactic Acid Jerrell (0.7-2.0) mmol/L Calcium 9.0 (8.4-10.2) mg/dL Total Bilirubin 0.3 (0.2-1.3) mg/dL AST 27 (14-36) U/L ALT 21 (4-34) U/L Alkaline Phosphatase 33 L (38-126) U/L Total Protein 7.0 (6.3-8.2) g/dL Albumin 4.6 (3.5-5.0) g/dL Amylase 52 (30-110) U/L Lipase 73 (23-300) U/L Urine Color Colorless Urine Appearance Clear (Clear) Urine pH 7.0 (5.0-8.0) Ur Specific [place] 1.004 (1.001-1.035) Urine Protein Negative (Negative) Urine Glucose (UA) Negative (Negative) Urine Ketones Negative (Negative) Urine Blood Negative (Negative) Urine Nitrite Negative (Negative) Urine Bilirubin Negative (Negative) Urine Urobilinogen <2.0 (<2.0) mg/dL Ur Leukocyte Esterase Negative (Negative) Urine HCG, Qual (Not Detectd) 09/25/21 09/25/21 Range/Units 11:27 11:27 WBC (3.8-10.6) k/uL RBC (3.80-5.40) m/uL Hgb (11.4-16.0) gm/dL Hct (34.0-46.0) % MCV (80.0-100.0) fL MCH (25.0-35.0) pg MCHC (31.0-37.0) g/dL RDW (11.5-15.5) % Plt Count (150-450) k/uL MPV Neutrophils % % Lymphocytes % % Monocytes % % Eosinophils % % Basophils % % Neutrophils # (1.3-7.7) k/uL Lymphocytes # (1.0-4.8) k/uL Monocytes # (0-1.0) k/uL Eosinophils # (0-0.7) k/uL Basophils # (0-0.2) k/uL Sodium (137-145) mmol/L Potassium (3.5-5.1) mmol/L Chloride (98-107) mmol/L Carbon Dioxide (22-30) mmol/L Anion Gap mmol/L BUN (7-17) mg/dL Creatinine (0.52-1.04) mg/dL Est GFR (CKD-EPI)AfAm (>60 ml/min/1.73 sqM) Est GFR (CKD-EPI)NonAf (>60 ml/min/1.73 sqM) Glucose (74-99) mg/dL Plasma Lactic Acid Jerrell 0.7 (0.7-2.0) mmol/L Calcium (8.4-10.2) mg/dL Total Bilirubin (0.2-1.3) mg/dL AST (14-36) U/L ALT (4-34) U/L Alkaline Phosphatase (38-126) U/L Total Protein (6.3-8.2) g/dL Albumin (3.5-5.0) g/dL Amylase (30-110) U/L Lipase (23-300) U/L Urine Color Urine Appearance (Clear) Urine pH (5.0-8.0) Ur Specific [place] (1.001-1.035) Urine Protein (Negative) Urine Glucose (UA) (Negative) Urine Ketones (Negative) Urine Blood (Negative) Urine Nitrite (Negative) Urine Bilirubin (Negative) Urine Urobilinogen (<2.0) mg/dL Ur Leukocyte Esterase (Negative) Urine HCG, Qual Not Detected (Not Detectd) - Radiology Data Radiology results: report reviewed, image reviewed Disposition Clinical Impression: Constipation Disposition: HOME SELF-CARE Instructions (If sedation given, give patient instructions): Irritable Bowel Syndrome (ED), Constipation (ED), Fleet Enema (ED) Additional Instructions: Return to the emergency department with any new, worsening, or concerning symptoms. Make sure that you continue to eat plenty of fiber, remain well- hydrated, and take your probiotic. The lactulose can be taken 3-4 times daily until your constipation resolves. Follow up with your primary care provider in 1-2 days. Prescriptions: Na Phos,M-B/Na Phos,Di-Ba [Fleet Adult] 133 ml RECTAL ONCE #113 ml Lactulose 20 gm PO TID #16 oz Is patient prescribed a controlled substance at d/c from ED?: No Referrals: Santy Dunbar MD [Primary Care Provider] - 1-2 days
--- NOTE | 2021-09-25 12:54 | CT ---
EXAMINATION TYPE: CT abdomen pelvis w con DATE OF EXAM: 09/25/2021 COMPARISON: None HISTORY: Abdominal distention and Constipation CT DLP: 711.9 mGycm CONTRAST: CT scan of the abdomen and pelvis is performed without Oral Contrast and with IV Contrast, patient in jected with 100 ml mL of Isovue 370. FINDINGS: LUNG BASES-: No visible nodule. No infiltrate. LIVER/GB: No calcified gallstones. No space occupying hepatic lesion. Biliary tree is of normal ca liber. PANCREAS: No inflammation. No distinct mass. SPLEEN: No splenic enlargement. No lesion seen. ADRENALS: No nodule. No thickening. KIDNEYS/BLADDER: No hydronephrosis. No nephrolithiasis. No distinct renal mass. Urinary bladder g rossly unremarkable. BOWEL: Nonvisualization of the appendix. No inflammatory process right lower quadrant. Moderate fecal stasis seen. Mild fluid distention distal small bowel loops without obstructive change. No free air or abscess. GENITAL ORGANS: Enhancing lesion left uterine cornua measuring 2 cm is felt to reflect leiomyoma. Lef t ovarian cyst measuring 2.3 cm. The right ovary is not clearly visualized. LYMPH NODES: No greater than 1cm abdominal or pelvic lymph nodes are appreciated. AORTA: No significant abnormality. OSSEOUS STRUCTURES: No significant abnormality is seen. OTHER: No significant additional abnormality is seen. IMPRESSION: 1. Moderate fecal stasis seen. Mild fluid distention distal small bowel loops without obstructive eileen nge. 2. Left ovarian cyst. 3. Leiomyomatous change of the uterus.
[2021-09-25] MEDS ORDERED: NA PHOS,M-B/NA PHOS,DI-BA 133 ML ENEMA RECTAL STA (14:07)
[2021-09-25] MEDS ORDERED: LACTULOSE 20 GM/30 ML CUP PO ONE (14:08)
[2021-09-25 15:13] VITALS: BP 144/69; PULSE 79; RESP 20
== END 2021-09-25 15:22 | disposition home or self-care (01) ==
LOC: EC 10:40
DX: K59.00 Constipation, unspecified (principal); Z88.0 Allergy status to penicillin
CPT/HCPCS: 36415; 80053; 82150; 83605; 83690; 85025; 81003; 81025; 74177; 99284; 96374; 96375; 96361; J2405; J1885; Q9967; 96376

== ENCOUNTER 2022-08-27 12:55 | Day surgery (SDC) | payer OTHER ==
[2022-08-25 15:52] VITALS: BMI 21.9
--- NOTE | 2022-08-26 08:47 | P.HPOR ---
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 She has a history of a right open carpal tunnel release performed 6 years ago, she states she had complete relief of her symptoms but they have returned. She also has a history of a C5-C7 total disc replacement with Dr. Morales 2 years ago, she states she responded well to surgery. SHe has numbness and tingling that radiates from the elbow to the small finger and notices the hand falls asleep when using the hand/wrist. She has tried anti- inflammatories and is on gabapentin which helps slightly. Physical Examination: RUE: AIN/PIN/Radial/Ulnar/Median motor intact. Radial/Ulnar/Median SILT. 2+/4 Radial/Ulnar pulses palpated. 5/5 APB, 5/5 FDI. Negative Finkelsteins, negative CMC grind, positive Durkan's compression. Positive tinels at cubital tunnel. Imaging: X-Rays of the right wrist 3v taken in office today demonstrate no acute abnormality. EMG/NCV testing of the right upper extremity demonstrate right cubital tunnel syndrome, right mild carpal tunnel syndrome, chronic C5-6 nerve root irritation. Impression: 1.) Right cubital tunnel syndrome 2.) Right recurrent carpal tunnel syndrome 3.) Right chronic C5-C6 radiculopathy s/p C5-7 TDR 2020 Plan: Diagnosis and treatment options were discussed with the patient. She has worsening symptoms with numbness and weakness in the hand and would like to pursue surgery. I recommend right open cubital tunnel release and right open revision carpal tunnel release. Risks and benefits of surgery including bleeding, infection, damage to surrounding tissue, need for further surgery, and residual numbness were discussed and the patient wished to go forward with surgery. The patient was agreeable with this plan. CC: Jhon Dunbar M.D. -Sergio Kwan DO Orthopedic Hand/Upper Extremity Surgeon Past Medical History Past Medical History: GERD/Reflux Additional Past Medical History / Comment(s): BLE EDEMA History of Any Multi-Drug Resistant Organisms: None Reported Past Surgical History: Appendectomy, Orthopedic Surgery, Tonsillectomy Additional Past Surgical History / Comment(s): paula.carpal tunnel. NECK SX. RT KNEE X2. LT KNEE X 1. BREAST AUGMENTATION Past Anesthesia/Blood Transfusion Reactions: Motion Sickness, Postoperative Nausea & Vomiting (PONV) Additional Past Anesthesia/Blood Transfusion Reaction / Comment(s): PONV only w/appy. Smoking Status: Never smoker - Past Family History Mother Family Medical History: Cancer Additional Family Medical History / Comment(s): colon & Breast CA Sister(s) Family Medical History: Cancer Additional Family Medical History / Comment(s): Osteosarcoma Medications and Allergies Home Medications Medication Instructions Recorded Confirmed Type Celecoxib [CeleBREX] 200 mg PO BID 08/25/22 08/25/22 History Cetirizine HCl [Zyrtec] 10 mg PO DAILY 08/25/22 08/25/22 History DULoxetine HCL [Cymbalta] 30 mg PO BID 08/25/22 08/25/22 History Diclofenac Sodium Gel [Voltaren 4 gm TOPICAL QID PRN 08/25/22 08/25/22 History Gel] Doxepin [SINEquan] 25 mg PO DAILY 08/25/22 08/25/22 History Furosemide [Lasix] 40 mg PO DAILY 08/25/22 08/25/22 History Gabapentin [Neurontin] 300 mg PO TID PRN 08/25/22 08/25/22 History Linaclotide [Linzess] 145 mcg PO DAILY 08/25/22 08/25/22 History Ondansetron [Zofran] 4 mg PO Q8HR PRN 08/25/22 08/25/22 History Pantoprazole [Protonix] 40 mg PO BID 08/25/22 08/25/22 History Potassium Chloride [Klor-Con M20] 20 meq PO BID 08/25/22 08/25/22 History hydrOXYzine HCL 25 mg PO Q8HR PRN 08/25/22 08/25/22 History Allergies Allergy/AdvReac Type Severity Reaction Status Date / Time Penicillins Allergy Anaphylaxis Verified 08/25/22 15:35 Physical Examination Osteopathic Statement: *. No significant issues noted on an osteopathic structural exam other than those noted in the History and Physical/Consult.
[~2022-08-27 12:55] MED LIST changes: -ACETAMINOPHEN TAB 500 MG TAB PO PRN; +HYDROmorphone 0.5 MG/0.5 ML SYRINGE IVP PRN; +LACTATED RINGERS 1,000 ML IV SCH; +MIDAZOLAM 2 MG/2 ML VIAL IV PRN; +ONDANSETRON 4 MG/2 ML VIAL IVP ONE; -ONDANSETRON 4 MG/2 ML VIAL IVP PRN; +Pre Op ABX Message 1 EACH MISC MISCELLANE ONE
[2022-08-27] MEDS ORDERED: MIDAZOLAM 2 MG/2 ML VIAL IVP ONE (14:22)
[2022-08-27] MEDS ORDERED: LIDOCAINE 2% INJ 20 MG/ML (2 ML VIAL) ONE (14:30)
[2022-08-27] MEDS ORDERED: MIDAZOLAM 2 MG/2 ML VIAL ONE (14:30)
[2022-08-27] MEDS ORDERED: fentaNYL (PF) 50 MCG/ML 2 ML AMP ONE (14:30)
[2022-08-27] MEDS ORDERED: LIDOCAINE 4% LTA KIT (4 ML) TOPICAL ONE (14:30)
[2022-08-27] MEDS ORDERED: KETAMINE 10 MG/ML 20 ML VIAL ONE (14:30)
[2022-08-27] MEDS ORDERED: BUPIVACAINE (PF) 0.5% 30 ML VIAL SQ ONE ×2 (14:56→15:29)
[2022-08-27] MEDS ORDERED: LACTATED RINGERS 1,000 ML IV ONE (14:59)
--- NOTE | 2022-08-27 15:47 | P.OP ---
Date of Procedure: 08/27/22 Preoperative Diagnosis: 1.) Right cubital tunnel syndrome 2.) Right recurrent carpal tunnel syndrome Postoperative Diagnosis: 1.) Right cubital tunnel syndrome 2.) Right recurrent carpal tunnel syndrome Procedure(s) Performed: 1.) Right open cubital tunnel release, in situ. 2.) Right revision open carpal tunnel release Anesthesia: CONCHIS Surgeon: Sergio Kwan [employer] #1: Gama Mackenzie Estimated Blood Loss (ml): 0 Pathology: none sent Condition: stable Disposition: PACU Description of Procedure: This is a 51 year old female who presented today for a right revision open carpal tunnel release and open cubital tunnel release after having failed conservative treatment. Risks and benefits of surgery were discussed with the patient including bleeding, damage to surrounding tissue, infection, need for further surgery as well as risks of anesthesia including pulmonary embolism and even and the patient wished to proceed with surgical intervention. The patient was seen in the pre-operative area by myself. Consent and H&P were completed and updated. The correct extremity was marked in the pre-operative area by myself and all other questions were answered. Operative Narrative: The patient was brought to the operating room by the department of anesthesia. They remained on the portable stretcher and a rolling hand table was brought to the side of the operative extremity. Pre-operative time out was performed indicating the correct patient, procedure and laterality. All in the room agreed. The patient was then drifted off to sleep by the department of anesthesia. A nonsterile tourniquet was then applied to the operative extremity and the right upper extremity was then prepped and draped in normal sterile fashion. The operative extremity was the exsanguinated with an esmarch bandage and the tourniquet was inflated to 250mmHg. 15 blade scalpel was utilized to make a longitudinal incision in the palm at the intersection between Kaplans Cardinal line and the radial boarder of the 4th digit. Dissection was taken through the palmar fascia and the transverse fibers of the ligament were directly visualized. The transverse ligament was then divided bluntly distally and the released in it's entirety from proximal to distal. There was abundant scar tissue around the previously released ligament and median nerve, neurolysis was performed to create separation between the median nerve and surrounding flexor tendons. Attention was brought to the medial elbow. 15 blade scalpel was used to incise skin in between the medial epicondyle and olecranon in a curvlinear and longitudinal fashion. Blunt dissection was taken down through subcutaneous tissue with tenotomy scissors and branches of the MABCN were identified and protected. Dissection was carried proximally and the ulnar nerve was identified and released in it's entirety to the the intermuscular septum. Dissection was then carried distally and clement's ligament was released at the medial epicondyle, the nerve appeared compressed at this location. Dissection was then carried out further distal and the fascia of the two heads of the FCU were incised and the ulnar nerve was decompressed with Gustavus and tenotomy scissors and appeared to be tension free. The elbow was the flexed and extended and the ulnar nerve appeared to be stable in a tension free manner 22 cc's of 0.5% bupivacaine was injected into the subcutaneous tissues around the elbow and palml. Skin closure was performed with interrupted 4-0 Monocryl sutures followed by running 4-0 Monocryl sutures and 4-0 nylon in the palm. Large bulky soft dressing was applied to the arm and hand with fluffs, cast padding and harish wrap. Tourniquet was then let down and the hand had immediate perfusion. The patient was then woken by the department of anesthesia and transferred to PACU in stable condition. Gama VASQUEZ was present to assist in major portions of the case and protection of vital neurovascular structures. Sergio Kwan D.O. Orthopedic Hand/Upper Extremity Surgeon
[2022-08-27 15:55] VITALS: TEMP 97.5
[2022-08-27] MEDS ORDERED: HYDROcodone/APAP 5-325MG 1 EACH TAB PO ONE (16:15)
[2022-08-27] MEDS ORDERED: HYDROcodone/APAP 5-325MG 1 EACH TAB ONE (16:15)
[2022-08-27 16:49] VITALS: RESP 18
[2022-08-27 16:50] VITALS: BP 136/75; PULSE 103
== END 2022-08-27 17:08 | disposition home or self-care (01) ==
LOC: OR 12:55
PROVIDERS: ATTEND Orthopaedic Surgery Hand Surgery
DX: G56.21 Lesion of ulnar nerve, right upper limb (principal); G56.01 Carpal tunnel syndrome, right upper limb; K21.9 Gastro-esophageal reflux disease without esophagitis; K91.0 Vomiting following gastrointestinal surgery; Z90.49 Acquired absence of other specified parts of digestive tract; Z90.89 Acquired absence of other organs; Z98.890 Other specified postprocedural states; Z80.0 Family history of malignant neoplasm of digestive organs; Z80.3 Family history of malignant neoplasm of breast; Z79.899 Other long term (current) drug therapy; Z88.0 Allergy status to penicillin
CPT/HCPCS: 81025; 64718; 64721; J2250; J1100; J2405; J3010; J1170; J2001

== ENCOUNTER → 2024-02-29 | Outpatient (CLI) | payer OTHER ==
--- NOTE | 2024-03-01 09:06 | MM ---
Reason for Exam: Follow-up at short interval from prior study. Last screening mammogram was performed 8 month(s) ago. Patient History: Menarche at age 14. First Full-Term at age 30. Postmenopausal. 2020, Bilateral Implants. Maternal grandmother had breast cancer. Maternal aunt had breast cancer. Mother had breast cancer. Risk Values: Yanni 5 year model risk: 2.1%. NCI Lifetime model risk: 16.3%. Prior Study Comparison: No prior studies available for comparison. Tissue Density: The breasts are heterogeneously dense, which may obscure small masses. Findings: Analyzed By CAD. Bilateral implants are intact. There is no evidence for mass or distortion. No suspicious microcalcifications are present. Overall Assessment: Benign, BI-RAD 2 Management: Screening Mammogram of both breasts in 1 year. . Results were given to the patient verbally at the time of exam. Patient should continue monthly self-breast exams. A clinical breast exam by your physician is recommended on an annual basis. This exam should not preclude additional follow-up of suspicious palpable abnormalities. Note on Yanni scores and lifetime risk: 1. A Yanni score greater than 3% is considered moderate risk. If this is the case, consider specialist referral to assess eligibility for a risk reducing agent. 2. If overall lifetime risk for the development of breast cancer is 20% or higher, the patient may qualify for future screening with alternating mammogram and breast MRI. [facility], , 03/01/2024 9:03 AM. Electronically signed and approved by: Yash Beverly M.D. Radiologis
== END | disposition home or self-care (01) ==
LOC: RADMAMWWP 14:56
PROVIDERS: ATTEND Family Medicine
DX: N63.10 Unspecified lump in the right breast, unspecified quadrant (principal); Z78.0 Asymptomatic menopausal state; Z80.3 Family history of malignant neoplasm of breast; R92.333 Mammographic heterogeneous density, bilateral breasts; Z98.82 Breast implant status
CPT/HCPCS: 77062; 77066

== ENCOUNTER → 2024-03-10 | Outpatient (CLI) | payer OTHER ==
--- NOTE | 2024-03-10 15:43 | CT ---
EXAMINATION TYPE: CT lumbar spine wo con CT DLP: 405.8 mGycm, Automated exposure control for dose reduction was used. DATE OF EXAM: 03/10/2024 3:27 PM COMPARISON: CT abdomen and pelvis 09/25/2021, lumbar spine radiograph 12/19/2015, MR C-spine/L spine . CLINICAL INDICATION:Female, 53 years old with history of M47.816 L SPONDYLOSIS M62.81 MUSCLE WEAKNESS ; PHH, back pain, muscle weakness TECHNIQUE: Multiple axial images were obtained from the midportion of T11 through the sacroiliac henry nts. Soft tissue and bone windows in coronal and sagittal planes were obtained and reviewed. Contrast used: none. FINDINGS: Alignment: There are 5 lumbar type vertebral bodies within normal alignment. Bone: No evidence of fracture is identified. Endplate sclerosis at L4-L5 with anterior osteophytosis . Discs: T12-L1: No spinal canal or neural foraminal stenosis is identified. L1-L2: No spinal canal or neural foraminal stenosis is identified. L2-L3: No spinal canal or neural foraminal stenosis is identified. L3-L4: Broad-based disc bulge with mild effacement of the anterior thecal sac without significant shay tral canal stenosis. Mild right neural foraminal stenosis. The left neural foramen is patent. L4-L5: Disc height loss and vacuum disc disease. Central disc protrusion redemonstrated contributing to mild central canal stenosis. Mild left neural foraminal stenosis. The right neural foramen is conti nt. L5-S1: No spinal canal or neural foraminal stenosis is identified. Other: None IMPRESSION: 1. No evidence for acute spinal fracture. 2. Degenerative disc disease at L3-L4 and most prominently at L4-L5 as described above. [facility], , 03/10/2024 3:40 PM
== END | disposition home or self-care (01) ==
LOC: RADCTMAIN 15:09
PROVIDERS: ATTEND Orthopaedic Surgery
DX: M48.061 Spinal stenosis, lumbar region without neurogenic claudication (principal); M51.369 Other intervertebral disc degeneration, lumbar region without mention of lumbar back pain or lower extremity pain; M47.816 Spondylosis without myelopathy or radiculopathy, lumbar region
CPT/HCPCS: 72131